=== PATIENT | female | born 1955 | race American Indian/Alaskan Native ===

== ENCOUNTER 2020-03-16 08:47 | Inpatient (IN) | payer MEDICARE, MEDICAID, OTHER, SELFPAY ==
[2020-03-16] VITALS (17 sets, daily range): BP systolic 131–165; BP diastolic 63–87; PULSE 85–124; RESP 16–45; TEMP 35.8–38.6; O2SAT 93–98; BMI 32.2; BMI 32.1
--- NOTE | 2020-03-16 08:55 | DI.RAD.S_ITS ---
PROCEDURE: XR CHEST 1V INDICATIONS: soa TECHNIQUE: One view of the chest was acquired. COMPARISON: [facility], CR, XR CHEST 1 VIEW, 03/03/2019, 13:56. [facility], CT, CT ANGIO CHEST PE, 03/04/2019, 18:18. [facility], CR, CHEST 1 VIEW, 07/22/2012, 17:28. FINDINGS: Surgical changes and devices: None. Lungs and pleura: Patchy bilateral interstitial infiltrates. No pleural effusions or pneumothorax. Mediastinum: Mediastinal contours appear normal. Heart size is normal. Bones and chest wall: No suspicious bony lesions. Overlying soft tissues appear unremarkable. IMPRESSION: Patchy bilateral interstitial infiltrates. Consider viral pneumonia. Dictated by: Doe rAaya M.D. on 03/16/2020 at 9:41 Approved by: Doe Araya M.D. on 03/16/2020 at 9:42
--- NOTE | 2020-03-16 08:57 | ED_ITS ---
HPI - SOB/Dyspnea General Chief Complaint: Shortness of Breath/Dyspnea Stated Complaint: fever Time Seen by Provider: 03/16/20 09:04 Source: patient and EMS Mode of arrival: EMS History of Present Illness HPI Narrative: Patient has been quarantined at home due to positive Covid. Sister is admitted in the hospital in [place] for covid. Patient has been doing well till she awoke this morning with fever and shortness of breath. Home temp erature 104?. However did not take any medicines rectal temperature here 101. Vital signs reviewed. Patient is speaking full sentences but is dyspneic. Not toxic appearing. Not hypotensive. Original patient was on 15 L non-rebreather. However only requiring 2 L nasal cannula at this time. She states usually short of breath when she is walking. Not having problems when playing and at rest. Denies any chest pain. No nausea or vomiting. Has had dry cough. No previous history of lung disease. Has history of stents in the iliac arteries. None in the heart. Has history of diabetes. At this time no intubation indicated. Respiratory therapy at bedside Related Data Home Medications Medication Instructions Recorded Confirmed aspirin 81 mg PO QDAY #0 07/18/12 03/16/20 enalapril maleate 20 mg PO BID #0 07/18/12 03/16/20 isosorbide mononitrate 30 mg PO Q DAY #0 07/18/12 03/16/20 levothyroxine [Synthroid] 0.075 mg PO QDAY #0 07/18/12 03/16/20 metoprolol tartrate 50 mg PO BID #0 07/18/12 03/16/20 amlodipine 5 mg PO DAILY 03/16/20 03/16/20 atorvastatin 10 mg PO DAILY 03/16/20 03/16/20 furosemide 20 mg PO BID 03/16/20 03/16/20 glipizide 2.5 mg PO DAILY 03/16/20 03/16/20 lisinopril 40 mg PO DAILY 03/16/20 03/16/20 metformin 850 mg PO DAILY 03/16/20 03/16/20 metoprolol succinate 25 mg PO DAILY 03/16/20 03/16/20 Previous Rx's Medication Instructions Recorded levofloxacin 750 mg PO DAILY #1 tab 03/20/20 Allergies Allergy/AdvReac Type Severity Reaction Status Date / Time Penicillins [PENICILLINS] Allergy Severe HIVES, SOB Verified 03/16/20 09:23 hydrocodone [HYDROCODONE] AdvReac Mild ITCHING Verified 03/16/20 09:23 Review of Systems Review of Systems Narrative: GENERAL: Complains of chills, fatigue, malaise, fever, sweats. HEENT: Denies sinus pain, ear pain, sore throat, difficulty swallowing, dizziness. RESPIRATORY: Complains of dyspnea, cough, denies any wheezing, hemoptysis, sputum. CARDIOVASCULAR: Denies chest pain, palpitations, orthopnea, edema, GASTROINTESTINAL: Denies nausea, vomiting, abdominal pain, diarrhea, constipation, melena. : Denies dysuria, frequency, incontinence, hematuria, urinary retention. MUSCULOSKELETAL: denies weakness, joint pain, or bony pain SKIN: Denies rash, skin lesions, or other NEUROLOGIC: Denies weakness, headache, numbness, change in speech, confusion, seizures, incoordination. PSYCHIATRIC: No concerning psychosocial issues. ROS Unobtainable: All systems reviewed & are unremarkable except as noted in HPI and below Patient History Medical History (Updated 03/16/20 @ 14:15 by Destiny Leblanc MD) CAD (coronary artery disease) (Acute) Hepatitis C, chronic (Acute) Hypertension (Acute) Liver cancer (Acute) Type 2 diabetes mellitus (Acute) Family History (Updated 03/16/20 @ 14:16 by Destiny Leblanc MD) Mother Myocardial infarction Father Myocardial infarction Sister Pneumonia due to COVID-19 virus Social History household members: family Smoking Status: Never smoker Exam Narrative Exam Narrative: GENERAL: patient appears stated age. Well-nourished, well- developed patient, in no distress, not toxic HEAD: Atraumatic. Normocephalic. EYES: Pupils equal round and reactive. Extraocular motions intact. No scleral icterus. No injection or drainage. ENT: Nose without bleeding, purulent drainage. Throat without erythema, tonsillar hypertrophy or exudate. Airway patent. NECK: Trachea midline. Non tender CARDIOVASCULAR: Regular rate and rhythm without murmurs, gallops, or rubs. RESPIRATORY: Patient speaking full sentences. Not using accessory neck muscles. No intercostal retractions. Appears mild moderate dyspnea, bibasilar rhonchi/rales GASTROINTESTINAL: Abdomen soft, non-tender, nondistended. EXTREMITIES: No edema or joint tenderness. No calf tenderness no pedal edema BACK: Nontender without deformity or crepitance. No flank tenderness. NEURO: AOx3. SKIN: No rash or erythema of visible areas PSYCH: Not anxious, is cooperative Initial Vital Signs Initial Vital Signs: Vital Signs Pulse Rate 117 H 03/16/20 08:51 Respiratory Rate 42 H 03/16/20 08:51 Pulse Oximetry 98 03/16/20 08:51 Course Course Course Narrative: Patient hypoxic when exertion but not hypoxic at rest. Decision to Admit Date: 03/16/20 Decision to Admit time: 10:50 Orders Ordered: Discontinued Medications Acetaminophen (Tylenol) 975 mg PO NOW ONE Stop: 03/16/20 08:57 Last Admin: 03/16/20 09:11 Dose: 975 mg Documented by: VALERY Acetaminophen (Tylenol) 650 mg PO Q6HR PRN PRN Reason: Fever/Mild Pain (1-3) Last Admin: 03/19/20 21:50 Dose: 650 mg Documented by: Admin: 03/18/20 17:47 Dose: 650 mg Documented by: MANDY Al Hydrox/Mg Hydrox/Simethicone (Maalox Plus) 30 ml PO Q6HR PRN PRN Reason: Dyspepsia Amlodipine Besylate (Norvasc) 5 mg PO DAILY [facility] Last Admin: 03/20/20 08:00 Dose: 5 mg Documented by: Admin: 03/19/20 08:52 Dose: 5 mg Documented by: Admin: 03/18/20 09:17 Dose: 5 mg Documented by: Admin: 03/17/20 09:42 Dose: 5 mg Documented by: SHANE Aspirin (Aspirin Ec) 81 mg PO DAILY [facility] Last Admin: 03/20/20 08:00 Dose: 81 mg Documented by: Admin: 03/19/20 08:52 Dose: 81 mg Documented by: Admin: 03/18/20 09:17 Dose: 81 mg Documented by: Admin: 03/17/20 09:43 Dose: 81 mg Documented by: SHANE Atorvastatin Calcium (Lipitor) 10 mg PO BEDTIME [facility] Last Admin: 03/19/20 21:50 Dose: 10 mg Documented by: Admin: 08/14/20 21:24 Dose: 10 mg Documented by: Admin: 03/17/20 20:15 Dose: 10 mg Documented by: Admin: 03/16/20 21:47 Dose: 10 mg Documented by: KACI Bisacodyl (Dulcolax) [address] DAILY PRN PRN Reason: Constipation Dexamethasone (Decadron) 6 mg PO NOW ONE Stop: 03/16/20 13:21 Last Admin: 03/16/20 14:35 Dose: 6 mg Documented by: SHANE Dexamethasone (Decadron) 6 mg PO DAILY [facility] Last Admin: 03/20/20 08:02 Dose: 6 mg Documented by: Admin: 03/19/20 08:53 Dose: 6 mg Documented by: Admin: 03/18/20 09:18 Dose: 6 mg Documented by: Admin: 03/17/20 09:42 Dose: 6 mg Documented by: Admin: 03/16/20 14:35 Dose: Not Given Documented by: SHANE Dextrose (D50w) 25 gm IV PRN PRN; Protocol PRN Reason: Hypoglycemia Docusate Sodium (Colace) 100 mg PO BID [facility] Last Admin: 03/20/20 08:01 Dose: 100 mg Documented by: Admin: 03/19/20 21:49 Dose: 100 mg Documented by: Admin: 03/19/20 08:53 Dose: 100 mg Documented by: Admin: 03/18/20 21:25 Dose: 100 mg Documented by: Admin: 03/18/20 09:17 Dose: 100 mg Documented by: Admin: 03/17/20 20:15 Dose: 100 mg Documented by: Admin: 03/17/20 09:42 Dose: 100 mg Documented by: Admin: 03/16/20 21:47 Dose: 100 mg Documented by: KACI Enoxaparin Sodium (Lovenox) 40 mg SUBCUT DAILY [facility] Last Admin: 03/20/20 08:01 Dose: 40 mg Documented by: Admin: 03/19/20 08:53 Dose: 40 mg Documented by: Admin: 03/18/20 09:17 Dose: 40 mg Documented by: Admin: 03/17/20 09:41 Dose: 40 mg Documented by: Admin: 03/16/20 14:33 Dose: 40 mg Documented by: SHANE Furosemide (Lasix) 20 mg PO BID [facility] Last Admin: 03/20/20 08:01 Dose: 20 mg Documented by: Admin: 03/19/20 21:50 Dose: 20 mg Documented by: Admin: 03/19/20 08:53 Dose: 20 mg Documented by: Admin: 03/18/20 21:25 Dose: 20 mg Documented by: Admin: 03/18/20 09:17 Dose: 20 mg Documented by: Admin: 03/17/20 20:15 Dose: 20 mg Documented by: Admin: 03/17/20 09:42 Dose: 20 mg Documented by: Admin: 03/16/20 21:47 Dose: 20 mg Documented by: KACI Glipizide (Glucotrol) 2.5 mg PO QACBREAK [facility] Last Admin: 03/20/20 08:01 Dose: 2.5 mg Documented by: Admin: 03/19/20 08:48 Dose: 2.5 mg Documented by: LUCY Sodium Chloride (Normal Saline 0.9%) 500 mls @ 1,000 mls/hr IV BOLUS ONE Stop: 03/16/20 09:31 Last Infusion: 03/16/20 10:00 Dose: 0 mls/hr Documented by: Admin: 03/16/20 09:11 Dose: 1,000 mls/hr Documented by: BTONER Remdesivir 200 mg/ Sodium (Chloride) 250 mls @ 250 mls/hr IV NOW ONE Stop: 03/16/20 13:20 Last Infusion: 03/16/20 16:00 Dose: 0 mls/hr Documented by: Admin: 03/16/20 14:35 Dose: 250 mls/hr Documented by: SHANE Remdesivir 100 mg/ Sodium (Chloride) 250 mls @ 250 mls/hr IV DAILY [facility] Stop: 03/20/20 09:59 Last Admin: 03/20/20 10:20 Dose: 250 mls/hr Documented by: Infusion: 03/19/20 10:00 Dose: 0 mls/hr Documented by: Admin: 03/19/20 08:56 Dose: 250 mls/hr Documented by: Infusion: 03/18/20 10:32 Dose: 0 mls/hr Documented by: Admin: 03/18/20 09:32 Dose: 250 mls/hr Documented by: Infusion: 03/17/20 10:41 Dose: 0 mls/hr Documented by: Admin: 03/17/20 09:41 Dose: 250 mls/hr Documented by: SHANE Sodium Chloride (Normal Saline 0.9%) 250 mls @ 21 mls/hr IV Q24H PRN PRN Reason: Flush Last Infusion: 03/19/20 10:00 Dose: 0 mls/hr Documented by: Admin: 03/19/20 08:54 Dose: 21 mls/hr Documented by: LUCY Levofloxacin (Levaquin) 750 mg in 150 mls @ 100 mls/hr IV Q24H [facility] Last Infusion: 03/19/20 17:47 Dose: 0 mls/hr Documented by: Admin: 03/19/20 15:27 Dose: 100 mls/hr Documented by: Infusion: 03/18/20 15:38 Dose: 100 mls/hr Documented by: Admin: 03/18/20 14:08 Dose: 100 mls/hr Documented by: Infusion: 03/17/20 22:17 Dose: 0 mls/hr Documented by: Admin: 03/17/20 16:33 Dose: 150 mls/hr Documented by: Infusion: 03/16/20 18:05 Dose: 0 mls/hr Documented by: Admin: 03/16/20 16:35 Dose: 100 mls/hr Documented by: GPLUCILA Ibuprofen (Advil) 600 mg PO Q6HR PRN PRN Reason: Fever/Mild Pain (1-3) Insulin Aspart (Novolog Flexpen) 0 unit SUBCUT Q6H [facility]; Protocol Last Admin: 03/16/20 16:24 Dose: Not Given Documented by: ACHEYAQUELIN Insulin Aspart (Novolog Flexpen) 0 unit SUBCUT ACHS [facility]; Protocol Last Admin: 03/20/20 08:38 Dose: Not Given Documented by: Admin: 03/19/20 21:52 Dose: 3 unit Documented by: LENI Cosigned by: RAMON Admin: 03/19/20 16:57 Dose: 3 unit Documented by: LENI Cosigned by: RAMON Admin: 03/19/20 12:36 Dose: Not Given Documented by: Admin: 03/19/20 09:40 Dose: Not Given Documented by: Admin: 03/18/20 21:25 Dose: 3 unit Documented by: MANDY Cosigned by: RAMON Admin: 03/18/20 17:47 Dose: 5 unit Documented by: MANDY Cosigned by: RAMON Admin: 03/18/20 12:43 Dose: 1 unit Documented by: SHANE Cosigned by: EMRE Admin: 03/18/20 09:15 Dose: 1 unit Documented by: SHANE Cosigned by: SHARONDA Admin: 03/17/20 22:15 Dose: 2 unit Documented by: MANDY Cosigned by: YEYO Admin: 03/17/20 16:32 Dose: 3 unit Documented by: MANDY Cosigned by: LAMBERT Admin: 03/17/20 12:58 Dose: 1 unit Documented by: SHANE Cosigned by: CARMEN Admin: 03/17/20 09:43 Dose: 1 unit Documented by: SHANE Cosharper by: EMRE Admin: 03/16/20 21:48 Dose: 2 unit Documented by: KACI Cosigned by: SHANTANU Admin: 03/16/20 16:37 Dose: 3 unit Documented by: KACI Cosigned by: SHANE Insulin Glargine (Lantus Solostar (Pen)) 10 unit SUBCUT BEDTIME [facility] Last Admin: 03/19/20 21:52 Dose: 10 unit Documented by: LENI Cosigned by: RAMON Admin: 03/18/20 21:25 Dose: 10 unit Documented by: MANDY Cosigned by: RAMON Admin: 03/17/20 22:15 Dose: 10 unit Documented by: MANDY Cosigned by: YEYO Admin: 03/16/20 21:49 Dose: 10 unit Documented by: KACI Cosigned by: SHANTANU Isosorbide Mononitrate (Isosorbide Mononitrate) 30 mg PO 0700 [facility] Isosorbide Mononitrate (Imdur) 30 mg PO 0700 [facility] Last Admin: 03/20/20 06:36 Dose: 30 mg Documented by: Admin: 03/19/20 06:22 Dose: 30 mg Documented by: Admin: 03/18/20 06:33 Dose: 30 mg Documented by: Admin: 03/17/20 06:44 Dose: 30 mg Documented by: LYN Levofloxacin (Levaquin) 750 mg PO NOW ONE Stop: 03/20/20 11:50 Last Admin: 03/20/20 12:03 Dose: 750 mg Documented by: LUCY Levothyroxine Sodium (Synthroid) 75 mcg PO 0600 [facility] Last Admin: 03/20/20 06:35 Dose: 75 mcg Documented by: Admin: 03/19/20 06:22 Dose: 75 mcg Documented by: Admin: 03/18/20 06:33 Dose: 75 mcg Documented by: Admin: 03/17/20 06:05 Dose: 75 mcg Documented by: LYN Lisinopril (Zestril) 40 mg PO DAILY [facility] Last Admin: 03/20/20 08:00 Dose: 40 mg Documented by: Admin: 03/19/20 08:53 Dose: 40 mg Documented by: Admin: 03/18/20 09:17 Dose: 40 mg Documented by: Admin: 03/17/20 09:43 Dose: 40 mg Documented by: SHANE Magnesium Hydroxide (Milk Of Magnesia) 30 ml PO DAILY PRN PRN Reason: Constipation Last Admin: 03/18/20 09:17 Dose: 30 ml Documented by: SHANE Melatonin (Melatonin) 6 mg PO BEDTIME [facility] Last Admin: 03/19/20 23:24 Dose: Not Given Documented by: Admin: 03/18/20 21:24 Dose: 6 mg Documented by: MANDY Metformin HCl (Glucophage) 1,000 mg PO 0800 [facility] Last Admin: 03/20/20 08:01 Dose: 1,000 mg Documented by: Admin: 03/19/20 08:52 Dose: 1,000 mg Documented by: LUCY Metoprolol Succinate (Toprol Xl) 50 mg PO BID [facility] Last Admin: 08/16/20 08:01 Dose: 50 mg Documented by: Admin: 03/19/20 21:50 Dose: 50 mg Documented by: Admin: 03/19/20 08:53 Dose: 50 mg Documented by: Admin: 03/18/20 21:29 Dose: Not Given Documented by: Admin: 03/18/20 09:17 Dose: 50 mg Documented by: Admin: 03/17/20 20:15 Dose: 50 mg Documented by: Admin: 03/17/20 09:43 Dose: 50 mg Documented by: Admin: 03/16/20 21:47 Dose: 50 mg Documented by: GPLUCILA Morphine Sulfate (Morphine) 2 mg IV Q4HR PRN PRN Reason: Pain, Moderate (4-6) Naloxone HCl (Narcan) 0.2 mg IV Q2MIN PRN PRN Reason: Opiate Reversal Non-Formulary Medication (Patient's Own Medication) 0 each PO PRN PRN PRN Reason: HOME MEDICATION STORAGE Ondansetron HCl (Zofran) 4 mg IV Q8HR PRN PRN Reason: Nausea And Vomiting Last Admin: 03/17/20 09:41 Dose: 4 mg Documented by: SHANE Sodium Chloride (Normal Saline 0.9% Flush) 10 ml IV PRN PRN PRN Reason: Flush Sodium Chloride (Normal Saline 0.9% Flush) 10 ml IV BID [facility] Sodium Chloride (Normal Saline 0.9% Flush) 10 ml IV PRN PRN PRN Reason: Flush Sodium Chloride (Normal Saline 0.9% Flush) 10 ml IV BID [facility] Last Admin: 03/20/20 08:01 Dose: 10 ml Documented by: Admin: 03/19/20 21:53 Dose: 10 ml Documented by: Admin: 03/19/20 08:54 Dose: 10 ml Documented by: Admin: 03/18/20 21:28 Dose: 10 ml Documented by: Admin: 03/18/20 09:18 Dose: 10 ml Documented by: Admin: 03/17/20 20:16 Dose: 10 ml Documented by: Admin: 03/17/20 09:41 Dose: 10 ml Documented by: SHANE Reevaluation(s) Reevaluation #1: Patient weaned down to 2 L nasal cannula. 98%. No dyspnea. Time: 10:50 Consultations Consultation #1: Spoke with Dr. leblanc, will admit Time: 10:50 Vital Signs Vital signs: Vital Signs - 8 hr 03/16/20 08:51 03/16/20 09:00 03/16/20 09:30 Temperature 101.4 F H Pulse Rate 117 H 114 H 107 H Respiratory Rate 42 H 29 H 45 H Blood Pressure 147/73 H 151/74 H Pulse Oximetry 98 95 98 03/16/20 10:00 03/16/20 10:16 03/16/20 10:17 Temperature 100.1 F H 100.1 F H Pulse Rate 102 H Respiratory Rate 32 H Blood Pressure 143/65 H Pulse Oximetry 97 03/16/20 10:30 03/16/20 10:31 Temperature Pulse Rate 98 H 96 H Respiratory Rate 40 H 35 H Blood Pressure 142/65 H Pulse Oximetry 97 96 MDM - SOB/Dyspnea Differential Diagnosis Differential diagnosis: Likely community acquired pneumonia Lab Data Attestation: I reviewed the patient's lab results. Result diagrams: 03/18/20 05:10 03/18/20 05:10 Labs: Lab Results 03/16/20 03/16/20 03/16/20 Range/Units 09:03 09:03 09:03 WBC 5.4 (4.5-11.0) X10^3/uL RBC 4.81 (4.0-5.2) X10^6/uL Hgb 13.9 (12.0-16.0) g/dL Hct 42.1 (36-46) % MCV 87.4 (80-100) fL MCH 28.8 (26-34) PG MCHC 33.0 (30-36) % RDW 13.6 (11.6-14.8) % Plt Count 101 L (150-400) X10^3/uL Neut % (Auto) 88.9 H (50-75) % Lymph % (Auto) 6.1 L (25-40) % [place] % (Auto) 4.4 (3-14) % Eos % (Auto) 0.2 L (2-4) % Baso % (Auto) 0.4 (0-2) % Neut # (Auto) 4800 (8795-9272) /uL Lymph # (Auto) 300 L (5906-0212) /uL [place] # (Auto) 200 (0-900) /uL Eos # (Auto) 0 (0-450) /uL Baso # (Auto) 0 (0-100) /uL APTT 41 H (26.4-36.2) SECONDS D-Dimer (<230) ng/mL ABG pH (7.35-7.45) ABG pCO2 (35-45) mmHg ABG pO2 (80-100) mmHg ABG HCO3 (22-26) mmol/L ABG Total CO2 (21-31) mmol/L ABG O2 Saturation (95-100) % ABG Base Excess (-2-2) mmol/L FiO2 Sodium (137-145) mmol/L Potassium (3.4-5.1) mmol/L Chloride (98-107) mmol/L Carbon Dioxide (22-32) mmol/L BUN (7-17) mg/dL Creatinine (0.52-1.04) mg/dL Estimated GFR (>60) mL/min BUN/Creatinine Ratio (6-22) Glucose (80-110) mg/dL Hemoglobin A1c (4.0-6.0) % Lactate (0.7-2.1) mmol/L Calcium (8.4-10.2) mg/dL Total Bilirubin (0.2-1.3) mg/dL AST (14-36) IU/L ALT (<35) IU/L Alkaline Phosphatase (38-126) U/L Total Creatine Kinase (30-135) U/L CK-MB (CK-2) CK-MB (CK-2) Rel Index Troponin I (0.01-0.034) ng/mL NT-Pro-B Natriuret Pep (<125) pg/mL Total Protein (6.3-8.2) g/dL Albumin (3.5-5.0) g/dL Globulin (1.7-4.1) g/dL Albumin/Globulin Ratio (1.0-2.8) Procalcitonin 8.00 H (<0.5) ng/mL Urine RBC (0-5/HPF) Urine WBC (0-5/HPF) Ur Squamous Epith Cells (0-5/HPF) Urine Bacteria (None) Ur Culture Indicated? COVID-19 PCR (Negative) 03/16/20 03/16/2020 Range/Units 09:03 09:03 09:03 WBC (4.5-11.0) X10^3/uL RBC (4.0-5.2) X10^6/uL Hgb (12.0-16.0) g/dL Hct (36-46) % MCV (80-100) fL MCH (26-34) PG MCHC (30-36) % RDW (11.6-14.8) % Plt Count (150-400) X10^3/uL Neut % (Auto) (50-75) % Lymph % (Auto) (25-40) % [place] % (Auto) (3-14) % Eos % (Auto) (2-4) % Baso % (Auto) (0-2) % Neut # (Auto) (1250-0129) /uL Lymph # (Auto) (5395-2403) /uL [place] # (Auto) (0-900) /uL Eos # (Auto) (0-450) /uL Baso # (Auto) (0-100) /uL APTT (26.4-36.2) SECONDS D-Dimer (<230) ng/mL ABG pH (7.35-7.45) ABG pCO2 (35-45) mmHg ABG pO2 (80-100) mmHg ABG HCO3 (22-26) mmol/L ABG Total CO2 (21-31) mmol/L ABG O2 Saturation (95-100) % ABG Base Excess (-2-2) mmol/L FiO2 Sodium 139 (137-145) mmol/L Potassium 3.9 (3.4-5.1) mmol/L Chloride 111 H (98-107) mmol/L Carbon Dioxide 19 L (22-32) mmol/L BUN 16 (7-17) mg/dL Creatinine 0.90 (0.52-1.04) mg/dL Estimated GFR > 60.0 (>60) mL/min BUN/Creatinine Ratio 17.8 (6-22) Glucose 116 H (80-110) mg/dL Hemoglobin A1c (4.0-6.0) % Lactate 1.3 (0.7-2.1) mmol/L Calcium 9.0 (8.4-10.2) mg/dL Total Bilirubin 0.5 (0.2-1.3) mg/dL AST 75 H (14-36) IU/L ALT 34 (<35) IU/L Alkaline Phosphatase 173 H (38-126) U/L Total Creatine Kinase (30-135) U/L CK-MB (CK-2) CK-MB (CK-2) Rel Index Troponin I (0.01-0.034) ng/mL NT-Pro-B Natriuret Pep 419 H (<125) pg/mL Total Protein 7.4 (6.3-8.2) g/dL Albumin 3.9 (3.5-5.0) g/dL Globulin 3.5 (1.7-4.1) g/dL Albumin/Globulin Ratio 1.1 (1.0-2.8) Procalcitonin (<0.5) ng/mL Urine RBC (0-5/HPF) Urine WBC (0-5/HPF) Ur Squamous Epith Cells (0-5/HPF) Urine Bacteria (None) Ur Culture Indicated? COVID-19 PCR (Negative) 03/16/20 03/16/20 03/16/20 Range/Units 09:03 09:03 09:03 WBC (4.5-11.0) X10^3/uL RBC (4.0-5.2) X10^6/uL Hgb (12.0-16.0) g/dL Hct (36-46) % MCV (80-100) fL MCH (26-34) PG MCHC (30-36) % RDW (11.6-14.8) % Plt Count (150-400) X10^3/uL Neut % (Auto) (50-75) % Lymph % (Auto) (25-40) % [place] % (Auto) (3-14) % Eos % (Auto) (2-4) % Baso % (Auto) (0-2) % Neut # (Auto) (7963-3245) /uL Lymph # (Auto) (0288-8780) /uL [place] # (Auto) (0-900) /uL Eos # (Auto) (0-450) /uL Baso # (Auto) (0-100) /uL APTT (26.4-36.2) SECONDS D-Dimer 453 H (<230) ng/mL ABG pH (7.35-7.45) ABG pCO2 (35-45) mmHg ABG pO2 (80-100) mmHg ABG HCO3 (22-26) mmol/L ABG Total CO2 (21-31) mmol/L ABG O2 Saturation (95-100) % ABG Base Excess (-2-2) mmol/L FiO2 Sodium (137-145) mmol/L Potassium (3.4-5.1) mmol/L Chloride (98-107) mmol/L Carbon Dioxide (22-32) mmol/L BUN (7-17) mg/dL Creatinine (0.52-1.04) mg/dL Estimated GFR (>60) mL/min BUN/Creatinine Ratio (6-22) Glucose (80-110) mg/dL Hemoglobin A1c 5.8 (4.0-6.0) % Lactate (0.7-2.1) mmol/L Calcium (8.4-10.2) mg/dL Total Bilirubin (0.2-1.3) mg/dL AST (14-36) IU/L ALT (<35) IU/L Alkaline Phosphatase (38-126) U/L Total Creatine Kinase 34 (30-135) U/L CK-MB (CK-2) TNP CK-MB (CK-2) Rel Index TNP Troponin I < 0.012 (0.01-0.034) ng/mL NT-Pro-B Natriuret Pep (<125) pg/mL Total Protein (6.3-8.2) g/dL Albumin (3.5-5.0) g/dL Globulin (1.7-4.1) g/dL Albumin/Globulin Ratio (1.0-2.8) Procalcitonin (<0.5) ng/mL Urine RBC (0-5/HPF) Urine WBC (0-5/HPF) Ur Squamous Epith Cells (0-5/HPF) Urine Bacteria (None) Ur Culture Indicated? COVID-19 PCR (Negative) 03/16/20 03/16/20 03/16/20 Range/Units 09:25 10:00 10:37 WBC (4.5-11.0) X10^3/uL RBC (4.0-5.2) X10^6/uL Hgb (12.0-16.0) g/dL Hct (36-46) % MCV (80-100) fL MCH (26-34) PG MCHC (30-36) % RDW (11.6-14.8) % Plt Count (150-400) X10^3/uL Neut % (Auto) (50-75) % Lymph % (Auto) (25-40) % [place] % (Auto) (3-14) % Eos % (Auto) (2-4) % Baso % (Auto) (0-2) % Neut # (Auto) (3346-7591) /uL Lymph # (Auto) (0304-1566) /uL [place] # (Auto) (0-900) /uL Eos # (Auto) (0-450) /uL Baso # (Auto) (0-100) /uL APTT (26.4-36.2) SECONDS D-Dimer (<230) ng/mL ABG pH 7.40 (7.35-7.45) ABG pCO2 28.8 L (35-45) mmHg ABG pO2 81 (80-100) mmHg ABG HCO3 18 L (22-26) mmol/L ABG Total CO2 19 L (21-31) mmol/L ABG O2 Saturation 96 (95-100) % ABG Base Excess -7.0 L (-2-2) mmol/L FiO2 28 Sodium (137-145) mmol/L Potassium (3.4-5.1) mmol/L Chloride (98-107) mmol/L Carbon Dioxide (22-32) mmol/L BUN (7-17) mg/dL Creatinine (0.52-1.04) mg/dL Estimated GFR (>60) mL/min BUN/Creatinine Ratio (6-22) Glucose (80-110) mg/dL Hemoglobin A1c (4.0-6.0) % Lactate (0.7-2.1) mmol/L Calcium (8.4-10.2) mg/dL Total Bilirubin (0.2-1.3) mg/dL AST (14-36) IU/L ALT (<35) IU/L Alkaline Phosphatase (38-126) U/L Total Creatine Kinase (30-135) U/L CK-MB (CK-2) CK-MB (CK-2) Rel Index Troponin I (0.01-0.034) ng/mL NT-Pro-B Natriuret Pep (<125) pg/mL Total Protein (6.3-8.2) g/dL Albumin (3.5-5.0) g/dL Globulin (1.7-4.1) g/dL Albumin/Globulin Ratio (1.0-2.8) Procalcitonin (<0.5) ng/mL Urine RBC 0-1/hpf (0-5/HPF) Urine WBC 1-5/hpf (0-5/HPF) Ur Squamous Epith Cells 0-1 /hpf (0-5/HPF) Urine Bacteria Few (2-10) H (None) Ur Culture Indicated? Specimen cultured COVID-19 PCR Positive H (Negative) Point of Care Testing Glucose POC 85 Urine Dip Bedside Urine Glucose 100 mg/dl Bedside Urine Ketone +++ 80 Urine Specific [place] 1.015 Bedside Urine Occult Blood - Negative Bedside Urine pH 7.0 Bedside Urine Protein ++ 100 Bedside Urine Urobilinogen - Negative Bedside Urine Nitrite - Negative Bedside Urine Leukocytes +/- 15 Esterase Imaging Data Chest x-ray: Radiologist's Impression: [place] [address] XRay Report Signed Patient: Sandra KirbyPRR#: [id number] : 5Acct:[id number] Age/Sex: 64 / FDate of Service: 03/16/20 Loc: ED Accession Number: [id number] Procedure: XR chest 1V Ordering Provider: Hipolito Rea MD PROCEDURE: XR CHEST 1V INDICATIONS: soa TECHNIQUE: One view of the chest was acquired. COMPARISON: [facility], CR, XR CHEST 1 VIEW, 03/03/2019, 13:56. [facility], CT, CT ANGIO CHEST PE, 03/04/2019, 18:18. [facility], CR, CHEST 1 VIEW, 07/22/2012, 17:28. FINDINGS: Surgical changes and devices: None. Lungs and pleura: Patchy bilateral interstitial infiltrates. No pleural effusions or pneumothorax. Mediastinum: Mediastinal contours appear normal. Heart size is normal. Bones and chest wall: No suspicious bony lesions. Overlying soft tissues appear unremarkable. IMPRESSION: Patchy bilateral interstitial infiltrates. Consider viral pneumonia. Dictated by: Doe Araya M.D. on 03/16/2020 at 9:41 Approved by: Doe Araya M.D. on 03/16/2020 at 9:42 CT scan - chest: Radiologist's Impression: [address] [address] [address] Scan Report Signed Patient: Sandra KirbynMR#: [id number] : 5Acct:[id number] Age/Sex: 64 / FDate of Service: 03/16/20 Loc: [id number] Accession Number: [id number] Procedure: CT angio chest PE protocol Ordering Provider: Hipolito Rea MD PROCEDURE: CT ANGIO CHEST PE PROTOCOL INDICATIONS: shortness of breath TECHNIQUE: After the administration of intravenous contrast, 2 mm thick sections acquired from the pulmonary apices to the posterior costophrenic angles. 3-dimensional maximum intensity projection (MIP) coronal and sagittal reformats were then acquired through the thorax. For radiation dose reduction, the following was used: automated exposure control, adjustment of mA and/or kV according to patient size. COMPARISON: [facility], CT, CT ANGIO CHEST PE, 03/04/2019, 18:18. FINDINGS: Image quality: Excellent. Pulmonary arteries: Pulmonary arteries are normal in size, and demonstrate no intraluminal filling defects to suggest central pulmonary embolism. Lungs and pleura: Extensive patchy ground-glass opacities present throughout all lung siegel. Consider alveolar pulmonary edema versus multifocal viral pneumonitis. No pleural effusions or pneumothorax. Central and peripheral airways are patent. Mediastinum: Mild cardiomegaly. No pericardial effusion. Coronary artery calcifications.. No mediastinal or hilar adenopathy. Thoracic aorta is normal in caliber and enhancement. Esophagus is normal in caliber, without hiatal hernia. Bones and chest wall: No suspicious bony lesions. Ribs and thoracic spine appear intact throughout. Thyroid gland is unremarkable. No axillary or supraclavicular adenopathy. Abdomen: Diffuse changes of cirrhosis with surface nodularity period in homogeneity of enhancement is again noted with nodular lesions present suspicious for multifocal hepatoma. IMPRESSION: 1. No evidence acute pulmonary emboli. 2. Mild cardiomegaly. 3. Extensive patchy ground-glass opacities throughout the lung siegel bilaterally. Differential includes developing alveolar pulmonary edema versus viral pneumo nitis. 4. Coronary artery disease. 5. Cirrhosis. 6. Unchanged findings of inhomogeneity in nodular lesions in the liver suggesting possible hepatoma. Dictated by: Doe Araya M.D. on 03/16/2020 at 11:58 Approved by: Doe Araya M.D. on 03/16/2020 at 12:05 ECG Data Attestation: I personally reviewed and interpreted this ECG as follows: Interpretation: Sinus tachycardia no ST elevation or depression MDM Narrative Medical decision making narrative: Admitting patient for dyspnea. Discharge Plan Departure Patient Disposition: Admitted as Observation Clinical Impression: Pneumonia due to 2019 novel coronavirus Discharge Date/Time: 03/16/20 12:34 Instructions: DI for Pneumonia -- Adult, Levofloxacin, DI for COVID-19 (Suspected or Confirmed ) Referrals: Rupali Roberts PA-C [Primary Care Provider] - Admit Date/Time: 03/16/20 10:51 Admit Provider: Destiny Leblanc
[2020-03-16] MEDS: ACETAMINOPHEN 325 MG TABLET 975 MG PO (09:11)
[2020-03-16] MEDS: SODIUM CHLORIDE 0.9% 500 ML 1000 ML IV (09:11)
[2020-03-16 09:17] LABS: Add Manual Diff / Slide Review NO; Basophils Absolute Auto 0 /uL (0-100); Basophils Percent Auto 0.4 % (0-2); Eosinophils Absolute Auto 0 /uL (0-450); Eosinophils Percent Auto 0.2 % (2-4); Hematocrit 42.1 % (36-46); Hemoglobin 13.9 g/dL (12.0-16.0); Lymphocytes Absolute Auto 300 /uL (1100-4500); Lymphocytes Percent Auto 6.1 % (25-40); Mean Corpuscular Hemoglobin 28.8 PG (26-34); Mean Corpuscular Volume 87.4 fL (80-100); Monocytes Absolute Auto 200 /uL (0-900); Monocytes Percent Auto 4.4 % (3-14); Neutrophils Absolute Auto 4800 /uL (1500-7000); Neutrophils Percent Auto 88.9 % (50-75); Platelet Count 101 X10^3/uL (150-400); Red Blood Cell Count 4.81 X10^6/uL (4.0-5.2); Red Cell Distribution Width 13.6 % (11.6-14.8); White Blood Cell Count 5.4 X10^3/uL (4.5-11.0)
[2020-03-16 09:25] LABS: PTT Partial Thromboplastin Tim 41 SECONDS (26.4-36.2)
[2020-03-16 09:27] LABS: Creatine Kinase 34 U/L (30-135); Lactate (Lactic Acid) 1.3 mmol/L (0.7-2.1)
--- NOTE | 2020-03-16 09:28 | PC.NURSE ---
Patient reports tested covid positive x2 weeks ago. States as of yesterday feeling fine and then approximately 0430 woke up shivering, put on blankets, and then went back to sleep. When she awoke later she said she was sweating and took her temperature with her home thermometer and it was 104. Patient called EMS. Upon arrival patient tachypneic. Patient changed from 6L non-breather (from EMS) to 2L NC- tolerated well sat at 97%. Patient confirms shortness of breath, tachycardia at 101. Denies chest pain. Lung sounds diminished bilateral and throughout. Isolation precautions in place.
[2020-03-16 09:29] LABS: Alanine Aminotransferase 34 IU/L (<35); Albumin 3.9 g/dL (3.5-5.0); Albumin Globulin Ratio 1.1 (1.0-2.8); Alkaline Phosphatase 173 U/L (38-126); Aspartate Aminotransferase 75 IU/L (14-36); BUN Creatinine Ratio 17.8 (6-22); Bilirubin Total 0.5 mg/dL (0.2-1.3); Blood Urea Nitrogen 16 mg/dL (7-17); Carbon Dioxide 19 mmol/L (22-32); Chloride 111 mmol/L (98-107); Estimated Glomerular Filt Rate > 60.0 mL/min (>60); Globulin 3.5 g/dL (1.7-4.1); Glucose 116 mg/dL (80-110); HEMOLYSIS < 15 (0-50); Potassium 3.9 mmol/L (3.4-5.1); Sodium 139 mmol/L (137-145); Total Protein 7.4 g/dL (6.3-8.2)
[2020-03-16 09:38] LABS: NT-proBNP (BNP-Adult 18+) 419 pg/mL (<125)
[2020-03-16 09:40] LABS: Troponin I < 0.012 ng/mL (0.01-0.034)
[2020-03-16 10:42] LABS: COVID19 -Nasal RAPID POSITIVE (Negative)
[2020-03-16 11:00] LABS: D Dimer 453 ng/mL (<230)
[2020-03-16 11:02] LABS: Bacteria Urine Few (2-10); Culture Indicated Urine Specimen Cultured; RBC Urine 0-1/HPF (0-5/HPF); Squamous Epithelial Cell Urine 0-1 /HPF (0-5/HPF); WBC Urine 1-5/HPF (0-5/HPF)
[2020-03-16 11:12] LABS: HCO3 ABG 18 mmol/L (22-26); Oxygen Saturation ABG 96 % (95-100); PCO2 ABG 28.8 mmHg (35-45); PO2 ABG 81 mmHg (80-100); TCO2 ABG 19 mmol/L (21-31)
[2020-03-16 11:13] LABS: Fractionated Inspired Oxygen 28
--- NOTE | 2020-03-16 11:13 | DI.CT.S_ITS ---
PROCEDURE: CT ANGIO CHEST PE PROTOCOL INDICATIONS: shortness of breath TECHNIQUE: After the administration of intravenous contrast, 2 mm thick sections acquired from the pulmonary apices to the posterior costophrenic angles. 3-dimensional maximum intensity projection (MIP) coronal and sagittal reformats were then acquired through the thorax. For radiation dose reduction, the following was used: automated exposure control, adjustment of mA and/or kV according to patient size. COMPARISON: [facility], CT, CT ANGIO CHEST PE, 03/04/2019, 18:18. FINDINGS: Image quality: Excellent. Pulmonary arteries: Pulmonary arteries are normal in size, and demonstrate no intraluminal filling defects to suggest central pulmonary embolism. Lungs and pleura: Extensive patchy ground-glass opacities present throughout all lung siegel. Consider alveolar pulmonary edema versus multifocal viral pneumonitis. No pleural effusions or pneumothorax. Central and peripheral airways are patent. Mediastinum: Mild cardiomegaly. No pericardial effusion. Coronary artery calcifications.. No mediastinal or hilar adenopathy. Thoracic aorta is normal in caliber and enhancement. Esophagus is normal in caliber, without hiatal hernia. Bones and chest wall: No suspicious bony lesions. Ribs and thoracic spine appear intact throughout. Thyroid gland is unremarkable. No axillary or supraclavicular adenopathy. Abdomen: Diffuse changes of cirrhosis with surface nodularity period in homogeneity of enhancement is again noted with nodular lesions present suspicious for multifocal hepatoma. IMPRESSION: 1. No evidence acute pulmonary emboli. 2. Mild cardiomegaly. 3. Extensive patchy ground-glass opacities throughout the lung siegel bilaterally. Differential includes developing alveolar pulmonary edema versus viral pneumonitis. 4. Coronary artery disease. 5. Cirrhosis. 6. Unchanged findings of inhomogeneity in nodular lesions in the liver suggesting possible hepatoma. Dictated by: Doe Araya M.D. on 03/16/2020 at 11:58 Approved by: Doe Araya M.D. on 03/16/2020 at 12:05
--- NOTE | 2020-03-16 12:05 | PC.NURSE ---
Patient states she is still having chest pain when she moves. States it is has not changed at all since she came in. CP only occurs when she is moving. When she gets back to resting it goes away. Dr. Flood. Provided patient with more juice and updated of admit.
--- NOTE | 2020-03-16 14:11 | P.HP_ITS ---
History of Present Illness History of Present Illness Date Patient Seen: 03/16/20 Chief complaint: fever Narrative: The patient is a 64-year-old female with a history of type 2 diabetes, hypertension, coronary disease, hep C with liver cancer who presented to the hospital due to fever shortness of breath and is found to be COVID-19 positive. The patient reports that her sister developed covert pneumonia about 4 weeks ago. Her sisters hospitalized at [facility]. She has a nephew who also is COVID-19 positive. The patient has been monitoring her fever daily. She noted a temperature today of over 100. In addition she reported increasing shortness of breath. She has a cough with minimal productive sputum. Four days ago she lost her ability to smell. She has had no wheezing. She reports diarrhea which she is so sees with the use of metformin. The patient was seen and evaluated in the emergency room. Chest x-ray showed bilateral interstitial infiltrates. Chest CT was pending at the time of this dictation. The patient was found to be hypoxic and presented on 15 L of oxygen. She was able to be tapered down to 2 L and managed a O2 sat of 94%. She is admitted to the hospital at this time for COVID-19 pneumonia. Patient History Medical History (Updated 03/16/20 @ 14:15 by Destiny Leblanc MD) CAD (coronary artery disease) (Acute) Hepatitis C, chronic (Acute) Hypertension (Acute) Liver cancer (Acute) Type 2 diabetes mellitus (Acute) Family & Social History Family History (Updated 03/16/20 @ 14:16 by Destiny Leblanc MD) Mother Myocardial infarction Father Myocardial infarction Sister Pneumonia due to COVID-19 virus Safety & Behavioral: Feels Safe in Current Yes Environment Tobacco & Substance use: Smoking Status Never smoker alcohol intake frequency holiday/special occasion Substance Use Type does not use Meds Home Medications and Allergies Home Medications Medication Instructions Recorded Confirmed Type aspirin 81 mg PO QDAY #0 07/18/12 03/16/20 History enalapril maleate 20 mg PO BID #0 07/18/12 03/16/20 History isosorbide mononitrate 30 mg PO Q DAY #0 07/18/12 03/16/20 History levothyroxine [Synthroid] 0.075 mg PO QDAY #0 07/18/12 03/16/20 History metoprolol tartrate 50 mg PO BID #0 07/18/12 03/16/20 History amlodipine 5 mg PO DAILY 03/16/20 03/16/20 History atorvastatin 10 mg PO DAILY 03/16/20 03/16/20 History furosemide 20 mg PO BID 03/16/20 03/16/20 History glipizide 2.5 mg PO DAILY 03/16/20 03/16/20 History lisinopril 40 mg PO DAILY 03/16/20 03/16/20 History metformin 850 mg PO DAILY 03/16/20 03/16/20 History metoprolol succinate 25 mg PO DAILY 03/16/20 03/16/20 History Allergies Allergy/AdvReac Type Severity Reaction Status Date / Time Penicillins [PENICILLINS] Allergy Severe HIVES, SOB Verified 03/16/20 09:23 hydrocodone [HYDROCODONE] AdvReac Mild ITCHING Verified 03/16/20 09:23 Review of Systems Review of Systems ROS: Yes All systems reviewed with the patient and are negative except as otherwise documented Exam Vital Signs (past 8 hours): - 03/16/20 08:51 03/16/20 09:00 03/16/20 09:30 Temperature 101.4 F H Pulse Rate 117 H 114 H 107 H Respiratory Rate 42 H 29 H 45 H Blood Pressure 147/73 H 151/74 H Pulse Oximetry 98 95 98 03/16/20 10:00 03/16/20 10:16 03/16/20 10:17 Temperature 100.1 F H 100.1 F H Pulse Rate 102 H Respiratory Rate 32 H Blood Pressure 143/65 H Pulse Oximetry 97 03/16/20 10:30 03/16/20 10:31 03/16/20 11:00 Temperature Pulse Rate 98 H 96 H 91 H Respiratory Rate 40 H 35 H 26 H Blood Pressure 142/65 H 147/63 H Pulse Oximetry 97 96 98 03/16/20 11:30 03/16/20 11:57 03/16/20 12:00 Temperature 99.8 F H Pulse Rate 87 97 H 92 H Respiratory Rate 27 H 30 H 33 H Blood Pressure 138/65 165/79 H Pulse Oximetry 98 97 97 03/16/20 12:01 Temperature Pulse Rate 93 H Respiratory Rate 26 H Blood Pressure 150/63 H Pulse Oximetry 97 Oxygen Delivery Method Nasal Cannula Oxygen Flow Rate 2 Narrative Exam Narrative: Pleasant female resting comfortably in no obvious distress HEENT: Normocephalic atraumatic, extraocular muscles are intact, oropharynx reveals she is edentulous, there is no lesions, no exudates noted Neck: Left submandibular adenopathy noted, mildly tender to palpation Lungs: Decreased breath sounds with scattered crackles and rhonchi bilaterally Cardiac exam: Regular rate and rhythm normal S1-S2 with a 2/6 systolic ejection murmur Abdomen: Soft nontender nondistended no hepatosplenomegaly noted, multiple incision points on her abdomen are noted. No rebound tenderness, no palpable masses Extremities: No edema Neuro exam: Nonfocal Psychiatric exam: Patient is awake alert appropriate, no hallucinations, no delusions Objective Labs Result Diagrams: 03/16/20 09:03 03/16/20 09:03 Labs: Laboratory Results - last 24 hr 03/16/20 03/16/20 03/16/20 09:03 09:03 09:03 WBC 5.4 RBC 4.81 Hgb 13.9 Hct 42.1 MCV 87.4 MCH 28.8 MCHC 33.0 RDW 13.6 Plt Count 101 L Neut % (Auto) 88.9 H Lymph % (Auto) 6.1 L [place] % (Auto) 4.4 Eos % (Auto) 0.2 L Baso % (Auto) 0.4 Neut # (Auto) 4800 Lymph # (Auto) 300 L [place] # (Auto) 200 Eos # (Auto) 0 Baso # (Auto) 0 APTT 41 H D-Dimer ABG pH ABG pCO2 ABG pO2 ABG HCO3 ABG Total CO2 ABG O2 Saturation ABG Base Excess FiO2 Sodium Potassium Chloride Carbon Dioxide BUN Creatinine Estimated GFR BUN/Creatinine Ratio Glucose Lactate Calcium Total Bilirubin AST ALT Alkaline Phosphatase Total Creatine Kinase CK-MB (CK-2) CK-MB (CK-2) Rel Index Troponin I NT-Pro-B Natriuret Pep Total Protein Albumin Globulin Albumin/Globulin Ratio Procalcitonin 8.00 H Urine RBC Urine WBC Ur Squamous Epith Cells Urine Bacteria Ur Culture Indicated? COVID-19 PCR 03/16/20 03/16/20 03/16/20 09:03 09:03 09:03 WBC RBC Hgb Hct MCV MCH MCHC RDW Plt Count Neut % (Auto) Lymph % (Auto) [place] % (Auto) Eos % (Auto) Baso % (Auto) Neut # (Auto) Lymph # (Auto) [place] # (Auto) Eos # (Auto) Baso # (Auto) APTT D-Dimer ABG pH ABG pCO2 ABG pO2 ABG HCO3 ABG Total CO2 ABG O2 Saturation ABG Base Excess FiO2 Sodium 139 Potassium 3.9 Chloride 111 H Carbon Dioxide 19 L BUN 16 Creatinine 0.90 Estimated GFR > 60.0 BUN/Creatinine Ratio 17.8 Glucose 116 H Lactate 1.3 Calcium 9.0 Total Bilirubin 0.5 AST 75 H ALT 34 Alkaline Phosphatase 173 H Total Creatine Kinase CK-MB (CK-2) CK-MB (CK-2) Rel Index Troponin I NT-Pro-B Natriuret Pep 419 H Total Protein 7.4 Albumin 3.9 Globulin 3.5 Albumin/Globulin Ratio 1.1 Procalcitonin Urine RBC Urine WBC Ur Squamous Epith Cells Urine Bacteria Ur Culture Indicated? COVID-19 PCR 03/16/20 03/16/20 03/16/20 09:03 09:03 09:25 WBC RBC Hgb Hct MCV MCH MCHC RDW Plt Count Neut % (Auto) Lymph % (Auto) [place] % (Auto) Eos % (Auto) Baso % (Auto) Neut # (Auto) Lymph # (Auto) [place] # (Auto) Eos # (Auto) Baso # (Auto) APTT D-Dimer 453 H ABG pH ABG pCO2 ABG pO2 ABG HCO3 ABG Total CO2 ABG O2 Saturation ABG Base Excess FiO2 Sodium Potassium Chloride Carbon Dioxide BUN Creatinine Estimated GFR BUN/Creatinine Ratio Glucose Lactate Calcium Total Bilirubin AST ALT Alkaline Phosphatase Total Creatine Kinase 34 CK-MB (CK-2) TNP CK-MB (CK-2) Rel Index TNP Troponin I < 0.012 NT-Pro-B Natriuret Pep Total Protein Albumin Globulin Albumin/Globulin Ratio Procalcitonin Urine RBC Urine WBC Ur Squamous Epith Cells Urine Bacteria Ur Culture Indicated? COVID-19 PCR Positive H 03/16/20 03/16/20 10:00 10:37 WBC RBC Hgb Hct MCV MCH MCHC RDW Plt Count Neut % (Auto) Lymph % (Auto) [place] % (Auto) Eos % (Auto) Baso % (Auto) Neut # (Auto) Lymph # (Auto) [place] # (Auto) Eos # (Auto) Baso # (Auto) APTT D-Dimer ABG pH 7.40 ABG pCO2 28.8 L ABG pO2 81 ABG HCO3 18 L ABG Total CO2 19 L ABG O2 Saturation 96 ABG Base Excess -7.0 L FiO2 28 Sodium Potassium Chloride Carbon Dioxide BUN Creatinine Estimated GFR BUN/Creatinine Ratio Glucose Lactate Calcium Total Bilirubin AST ALT Alkaline Phosphatase Total Creatine Kinase CK-MB (CK-2) CK-MB (CK-2) Rel Index Troponin I NT-Pro-B Natriuret Pep Total Protein Albumin Globulin Albumin/Globulin Ratio Procalcitonin Urine RBC 0-1/hpf Urine WBC 1-5/hpf Ur Squamous Epith Cells 0-1 /hpf Urine Bacteria Few (2-10) H Ur Culture Indicated? Specimen cultured COVID-19 PCR Assessment & Plan Assessment & Plan narrative: Impression 1. 64-year-old female admitted to the hospital with acute hypoxic respiratory failure -patient presented initially on 15 L of oxygen -she has been successfully tapered to 2 L of oxygen -she is typically not on oxygen at home 2. COVID-19 pneumonia -patient tested positive for SARs Covid-2 in the emergency room -patient had exposure to her sister who is currently hospitalized and now at [facility] with COVID-19 -Chest x-ray and CT scan confirmed bilateral ground glass opacities -patient presents with lymphopenia and mild thrombocytopenia -patient corroborates anomina -given her markedly elevated procalcitonin will empirically treat for superimposed bacterial infection as well -patient will be started on Remdesevir 200 mg IV x1 followed with 100 mg daily for total of 5 days. She will be initiated on Decadron 6 mg p.o. daily for 10 days or until she is discharged -will continue to taper oxygen as she tolerated -D-dimer elevated at 453, will start her on Lovenox for DVT prophylaxis. Would empirically check D-dimer if she deteriorates consider therapeutic anticoagulation for a D-dimer of greater than 1500 -patient does not appear to be dehydrated, will defer IV hydration at this time -patient is a full code will note that her record accordingly 3. Type 2 diabetes -patient typically maintained on glipizide and Glucophage -will discontinue both here in the hospital -given use of Decadron for treatment of COVID-19 start her on basal bolus insulin -will titrate both basal and bolus insulin based on glucose here in the hospital 4. Hypertension -patient reports she takes both lisinopril and enalapril -will hold enalapril but continue lisinopril -will continue amlodipine at this time -will continue b.i.d. Lasix as well 5. Hyperlipidemia -continue statin 6. Coronary artery disease -will continue aspirin statin, beta-cee -continue Isordil 7. Cirrhosis -secondary to hepatitis-C, and alcohol use -patient reportedly with a hepatoma for which she is being treated in [place] with intermittent laser therapy -will monitor her closely 8. Hypothyroid -continue L-thyroxine Patient will be admitted to the hospital as an inpatient as we anticipate a great length of stay greater than 48 hours. Patient is a full code which has been noted in her record. She is on Lovenox for DVT prophylaxis Patient does have a surrogate decision maker who is her nephew.
[2020-03-16] MEDS: ENOXAPARIN 40 MG/0.4 ML SYRINGE SUBCUT (14:33)
[2020-03-16] MEDS: REMDESIVIR 200 MG in SODIUM CHLORIDE 0.9% 210 ML 250 ML IV (14:35)
[2020-03-16] MEDS: DEXAMETHASONE 4 MG/ML VIAL 6 MG PO (14:35)
--- NOTE | 2020-03-16 16:14 | PC.NURSE ---
Day Shift- report rec'd from ED RN at 1210. Pt arrived to unit room 219 at 1227 via stretcher. Pt able to walk to bed from stretcher. pt currently in COVID-19 isolation, special droplet/contact precautions. Pt oriented to call light, bed, alarm, bed functions, use of oxygen. Pt reports having intermittent moist cough with thick yellow sputum production. Currently on 2L NC, O2 sat 97%. Pt A&OX4, appropriate. Pt states her sister Yanira who she lives with is currently at [facility] with COVID-19. Pt's sister Danelle called for a brief update around 1335, pt aware. Pt has her own medication bottles in a purse like bag. Evening RN aware to have them sent to pharmacy to store until pt discharge and pt okay with this process.
[2020-03-16] MEDS: levoFLOXacin 750 MG/150 ML PIGGYBACK 100 MG IV (16:35)
[2020-03-16] MEDS: INSULIN ASPART 100 UNIT/ML INSULN PEN SUBCUT ×2 (16:37→21:48)
[2020-03-16 20:17] LABS: Hemoglobin A1C% w Est Avg Glu 5.8 % (4.0-6.0)
[2020-03-16] MEDS: FUROSEMIDE 20 MG TABLET PO (21:47)
[2020-03-16] MEDS: DOCUSATE 100 MG CAPSULE PO (21:47)
[2020-03-16] MEDS: ATORVASTATIN 10 MG TABLET PO (21:47)
[2020-03-16] MEDS: METOPROLOL ER 50 MG TABLET PO (21:47)
[2020-03-16] MEDS: INSULIN GLARGINE 100 UNIT/ML 3ML PEN 10 UNIT SUBCUT (21:49)
--- NOTE | 2020-03-16 22:33 | PC.NURSE ---
Assumed care of pt at 1500. Pt resting in bed. On special droplet isolation. Pt remains on 2L NC, sats 93-95%, SOB on RA and during ambulation to bathroom. Intermittent cough with yellow sputum. Home meds sent to pharmacy. Calling appropriately for needs. Bed alarm on.
[2020-03-17] VITALS (10 sets, daily range): BP systolic 124–176; BP diastolic 64–97; PULSE 77–88; RESP 20–24; TEMP 36–36.9; O2SAT 90–97
--- NOTE | 2020-03-17 01:18 | PC.NURSE ---
Addendum entered by Sylvie Grove R.N. 03/17/20 07:11: 7 beat run of V tach at approx 0600. Pt asymptomatic, BP elevated but pt had just ambulated to BR. SALVATORE to LOLLY Harvey, no new orders. Original Note: Pt reports mild SOB w/rest that increases w/any exertion. O2 sats drop from 94% to 87% w/exertion. Explained to pt that it is imperative she call immediately for any change in her breathing. Asked that she communicate an increase in cough, SOB or feeling that she may have spiked a temp. Pt stated that she would use her call light appropriately.
[2020-03-17] MEDS: LEVOTHYROXINE 75 MCG TABLET PO (06:05)
[2020-03-17] MEDS: ISOSORBIDE MONONITRATE ER 30 MG TABLET PO (06:44)
[2020-03-17] MEDS: ENOXAPARIN 40 MG/0.4 ML SYRINGE SUBCUT (09:41)
[2020-03-17] MEDS: REMDESIVIR 100 MG in SODIUM CHLORIDE 0.9% 230 ML 250 ML IV (09:41)
[2020-03-17] MEDS: ONDANSETRON 4 MG/2 ML INJ IV (09:41)
[2020-03-17] MEDS: SODIUM CHLORIDE 0.9% FLUSH 10 ML IV ×2 (09:41→20:16)
[2020-03-17] MEDS: FUROSEMIDE 20 MG TABLET PO ×2 (09:42→20:15)
[2020-03-17] MEDS: AMLODIPINE 5 MG TABLET PO (09:42)
[2020-03-17] MEDS: dexAMETHasone 4 MG TABLET 6 MG PO (09:42)
[2020-03-17] MEDS: DOCUSATE 100 MG CAPSULE PO ×2 (09:42→20:15)
[2020-03-17] MEDS: lisinopriL 20 MG TABLET 40 MG PO (09:43)
[2020-03-17] MEDS: INSULIN ASPART 100 UNIT/ML INSULN PEN SUBCUT ×4 (09:43→22:15)
[2020-03-17] MEDS: METOPROLOL ER 50 MG TABLET PO ×2 (09:43→20:15)
[2020-03-17] MEDS: ASPIRIN EC 81 MG TABLET PO (09:43)
--- NOTE | 2020-03-17 12:13 | PM.PN.1 ---
Subjective Subjective Date Patient Seen: 03/17/20 Interval history: Patient is 64-year-old female with history of type 2 diabetes, hypertension, CAD, hep C, hepatoma admitted with respiratory failure due to COVID-19 pneumonia with possible bacterial superimposed pneumonia. She is on REM does severe, dexamethasone and Levaquin. Patient states she is feeling better, felt less short of breath when got up from bed to bathroom. Denies dyspnea at rest. Fevers seems to be resolving. She does have cough productive of mucus and having some bleeding from her nose. She feels constipated. Exam Vital Signs (past 8 hours): - 03/17/20 06:30 03/17/20 08:30 03/17/20 09:45 Temperature 98.5 F 98.0 F Pulse Rate 88 86 Respiratory Rate 22 Blood Pressure 163/97 H 132/69 Pulse Oximetry 94 90 L 95 Oxygen Delivery Method Nasal Cannula Oxygen Flow Rate 3 Narrative Exam Narrative: General: Alert and pleasant female in no acute distress Lungs: There are some crackles in the right upper lobe, no wheeze Heart: Regular rhythm Extremities: No edema Neurological: Sensorium intact, nonfocal Skin: No rash or petechiae Objective Labs Result Diagrams: 03/16/20 09:03 03/16/20 09:03 Labs: Laboratory Results - last 24 hr 03/16/20 09:03 Hemoglobin A1c 5.8 Assessment & Plan Assessment & Plan narrative: Patient is 64-year-old female with history of type 2 diabetes, hypertension, CAD, hep C, hepatoma admitted with respiratory failure due to COVID-19 pneumonia with possible bacterial superimposed pneumonia. 1. Acute hypoxic respiratory failure due to COVID-19 pneumonia with possible superimposed bacterial pneumonia, present on admission, active -patient presented initially on 15 L of oxygen but titrated fairly rapidly down to 3 L nasal cannula -chest x-ray and CT with bilateral diffuse ground-glass opacities -labs with lymphopenia and mild thrombocytopenia but markedly elevated procalcitonin of 8 concerning for superimposed bacterial infection -started on from dose for to 100 mg IV x1 followed by 100 mg IV daily for total of 5 days -Decadron 6 mg p.o. daily for up to 10 days or until discharge -Levaquin 750 mg IV daily -titrate supplemental O2 to maintain sats greater than 90% -Recheck CBC, procalcitonin in a.m. 2. Type 2 diabetes -patient typically maintained on glipizide and Glucophage -hold glipizide, hold metformin x [address] contrast -given use of Decadron for treatment of COVID-19 start her on basal bolus insulin -Lantus 10 units HS and NovoLog sliding scale 3. Hypertension -patient reports she takes both lisinopril and enalapril -will hold enalapril but continue lisinopril -continue amlodipine at this time -continue b.i.d. Lasix as well 4. Hyperlipidemia -continue statin 5. Coronary artery disease -continue aspirin statin, beta-cee, isosorbide per home routine 6. Cirrhosis -secondary to hepatitis-C, and alcohol use -patient reportedly with a hepatoma for which she is being treated in [place] with intermittent laser therapy 7. Hypothyroid -continue L-thyroxine 8. Urinary bacteria, present on admission -urine culture positive for strep agalactiae -likely asymptomatic bacteriuria without clinical UTI as patient denies urinary symptoms Patient is a full code which has been noted in her record. She is on Lovenox for DVT prophylaxis Patient does have a surrogate decision maker who is her nephew. Quality VTE Deep Vein Thrombosis/Pulmonary Embolism Present on Admission: No
--- NOTE | 2020-03-17 12:15 | CM.IDA ---
Initial DCP Assessment Note Patient is a 64 yo female, resident of [facility]. Patient presents w/ SOB, h/o type 2 diabetes, herat disease, hep v with liver CA, found to have COVID-19+ pneumonia. PCP: Rupali Roberts Payer: [facility] Reviewed chart. Patient currently COVID-19 + this [employer] taking safety precaution and remaining out of the room at this time. Will plan to follow very closely over the next 24 hrs and address DC needs or concerns as they arise. Therapies likely will be pending when appropriate, might assist in developing safe DCP SELMA Bush
--- NOTE | 2020-03-17 15:59 | PC.NURSE ---
Addendum entered by Anastasia Fountain R.N. 03/18/20 14:39: Pt up to shower with SBA, O2 removed at this time. Pt back sitting on edge of bed, O2 sat 89% on RA, O2 NC 1L placed back on. Pt stated feeling better overall. did not appear short of breath ambulating to BR or during shower. Addendum entered by Anastasia Fountain R.N. 03/18/20 13:17: Pt's sister Danelle called this Rn, missed call. Saw pt around 1245, and spoke with Danelle in pt's room. Pt had scant BM prior to lunch, passing flatus. O2 sat 90-91% on 1L NC. On continuous O2 monitoring. Original Note: Day Shift- Pt remains in droplet/contact isolation precautions. Pt A&OX4, able to make needs known using call light, uses call light for assist to BR. O2 sat 95-97% on 3L NC, decreased to 1L NC, O2 sat 92-93%. On continuous O2 monitoring. AE diminished throughout lung siegel, more so to bases with coarseness throughout. Pt has intermittent strong cough. Pt reports yellow thick, curdle like sputum. Denies shortness of breath on rest, states gets SOBOE walking to BR. Pt tolerating meal trays, drinking fluids/water. No BM this shift, pt given scheduled stool softener this AM, Dr. Card aware at 1100, pt's last BM was 8/11 and diarrhea, none since, pt passing flatus. Dr. Card placed new order for milk of Magnesia prn. Bed alarm on, call lig and phone within reach. Pt spoke with her sister Danelle around 1000 as pt was concerned about her dogs at home. Danelle had called this RN earlier in the shift and this RN unable to contact Danelle back at that time. Pt's niece Angie called at 0825, asking for discharge update. Unknown at this time, pt aware of this conversation.
[2020-03-17] MEDS: levoFLOXacin 750 MG/150 ML PIGGYBACK 150 MG IV (16:33)
[2020-03-17] MEDS: ATORVASTATIN 10 MG TABLET PO (20:15)
[2020-03-17] MEDS: INSULIN GLARGINE 100 UNIT/ML 3ML PEN 10 UNIT SUBCUT (22:15)
[2020-03-18] VITALS (14 sets, daily range): BP systolic 120–147; BP diastolic 61–75; PULSE 58–73; RESP 16–20; TEMP 36.3–36.7; O2SAT 1–94
[2020-03-18 05:49] LABS: Add Manual Diff / Slide Review NO; Basophils Absolute Auto 0 /uL (0-100); Basophils Percent Auto 0.1 % (0-2); Eosinophils Absolute Auto 0 /uL (0-450); Hematocrit 40.8 % (36-46); Hemoglobin 13.4 g/dL (12.0-16.0); Lymphocytes Absolute Auto 500 /uL (1100-4500); Mean Corpuscular Hemoglobin 28.6 PG (26-34); Mean Corpuscular Volume 86.7 fL (80-100); Monocytes Absolute Auto 500 /uL (0-900); Neutrophils Absolute Auto 6000 /uL (1500-7000); Neutrophils Percent Auto 85.9 % (50-75); Platelet Count 121 X10^3/uL (150-400); Red Cell Distribution Width 14.3 % (11.6-14.8)
[2020-03-18 05:56] LABS: BUN Creatinine Ratio 26.1 (6-22); Blood Urea Nitrogen 23 mg/dL (7-17); Calcium 8.5 mg/dL (8.4-10.2); Carbon Dioxide 21 mmol/L (22-32); Chloride 113 mmol/L (98-107); Estimated Glomerular Filt Rate > 60.0 mL/min (>60); Glucose 162 mg/dL (80-110); HEMOLYSIS < 15 (0-50); Potassium 4.3 mmol/L (3.4-5.1); Sodium 140 mmol/L (137-145)
[2020-03-18 06:22] LABS: Procalcitonin 3.66 ng/mL (<0.5)
[2020-03-18] MEDS: LEVOTHYROXINE 75 MCG TABLET PO (06:33)
[2020-03-18] MEDS: ISOSORBIDE MONONITRATE ER 30 MG TABLET PO (06:33)
[2020-03-18] MEDS: INSULIN ASPART 100 UNIT/ML INSULN PEN SUBCUT ×4 (09:15→21:25)
[2020-03-18] MEDS: MAGNESIUM HYDROXIDE 30 ML UDC PO (09:17)
[2020-03-18] MEDS: METOPROLOL ER 50 MG TABLET PO (09:17)
[2020-03-18] MEDS: FUROSEMIDE 20 MG TABLET PO ×2 (09:17→21:25)
[2020-03-18] MEDS: DOCUSATE 100 MG CAPSULE PO ×2 (09:17→21:25)
[2020-03-18] MEDS: lisinopriL 20 MG TABLET 40 MG PO (09:17)
[2020-03-18] MEDS: AMLODIPINE 5 MG TABLET PO (09:17)
[2020-03-18] MEDS: ENOXAPARIN 40 MG/0.4 ML SYRINGE SUBCUT (09:17)
[2020-03-18] MEDS: ASPIRIN EC 81 MG TABLET PO (09:17)
[2020-03-18] MEDS: dexAMETHasone 4 MG TABLET 6 MG PO (09:18)
[2020-03-18] MEDS: SODIUM CHLORIDE 0.9% FLUSH 10 ML IV ×2 (09:18→21:28)
[2020-03-18] MEDS: REMDESIVIR 100 MG in SODIUM CHLORIDE 0.9% 230 ML 250 ML IV (09:32)
[2020-03-18] MEDS: levoFLOXacin 750 MG/150 ML PIGGYBACK 100 MG IV (14:08)
--- NOTE | 2020-03-18 17:16 | P.PN_ITS ---
Subjective Subjective Date Patient Seen: 03/18/20 Interval history: Patient is 64-year-old female with history of type 2 diabetes, hypertension, CAD, hep C, hepatoma admitted with respiratory failure due to COVID-19 pneumonia with possible bacterial superimposed pneumonia. She is on Remdesivir, dexamethasone and Levaquin. Patient continues to feel better with less shortness of breath. O2 titrated down to 1 L nasal cannula. She is eating okay. Sense of smell is also coming back. Exam Vital Signs (past 8 hours): - 03/18/20 09:25 03/18/20 12:15 03/18/20 13:00 Temperature 97.4 F L Pulse Rate 73 Respiratory Rate 20 Blood Pressure 120/69 Pulse Oximetry 91 93 91 03/18/20 13:04 03/18/20 14:38 03/18/20 16:05 Temperature 98.1 F Pulse Rate 63 Respiratory Rate 19 Blood Pressure 131/75 Pulse Oximetry 1 L 89 L 93 Oxygen Delivery Method Room Air Oxygen Flow Rate 1 Narrative Exam Narrative: General: Alert pleasant and cooperative in no acute distress Lungs: Clear to auscultation Heart: Regular rhythm Abdomen: Soft and nontender Neurological: Sensorium intact Objective Labs Result Diagrams: 03/18/20 05:10 03/18/20 05:10 Labs: Laboratory Results - last 24 hr 03/18/20 03/18/20 03/18/20 05:10 05:10 05:10 WBC 7.0 RBC 4.70 Hgb 13.4 Hct 40.8 MCV 86.7 MCH 28.6 MCHC 33.0 RDW 14.3 Plt Count 121 L Neut % (Auto) 85.9 H Lymph % (Auto) 7.0 L Calloway % (Auto) 7.0 Eos % (Auto) 0.0 L Baso % (Auto) 0.1 Neut # (Auto) 6000 Lymph # (Auto) 500 L Calloway # (Auto) 500 Eos # (Auto) 0 Baso # (Auto) 0 Sodium 140 Potassium 4.3 Chloride 113 H Carbon Dioxide 21 L BUN 23 H Creatinine 0.88 Estimated GFR > 60.0 BUN/Creatinine Ratio 26.1 H Glucose 162 H Calcium 8.5 Procalcitonin 3.66 H Assessment & Plan Assessment & Plan narrative: Patient is 64-year-old female with history of type 2 diabetes, hypertension, CAD, hep C, hepatoma admitted with respiratory failure due to COVID-19 pneumonia with possible bacterial superimposed pneumonia. 1. Acute hypoxic respiratory failure due to COVID-19 pneumonia with possible superimposed bacterial pneumonia, present on admission, active -patient presented initially on 15 L of oxygen but titrated fairly rapidly down to 3 L nasal cannula and currently down to 1 L NC -chest x-ray and CT with bilateral diffuse ground-glass opacities -labs with lymphopenia and mild thrombocytopenia but markedly elevated proc alcitonin of 8 concerning for superimposed bacterial infection -procalcitonin is improved by greater than 50% -started on Remdesevir 200 mg IV x1 followed by 100 mg IV daily for total of 5 days -Decadron 6 mg p.o. daily for up to 10 days or until discharge -Levaquin 750 mg IV daily for bacterial pneumonia superinfection -titrate supplemental O2 to maintain sats greater than 90% 2. Type 2 diabetes -patient typically maintained on glipizide and Glucophage -metformin held times 48 hours post contrast -resumed patient's glipizide and metformin due to elevated sugar -also on Lantus 10 units HS and NovoLog sliding scale 3. Hypertension -patient reports she takes both lisinopril and enalapril -will hold enalapril but continue lisinopril -continue amlodipine at this time -continue b.i.d. Lasix as well per home routine 4. Hyperlipidemia -continue statin 5. Coronary artery disease -continue aspirin statin, beta-cee, isosorbide per home routine 6. Cirrhosis -secondary to hepatitis-C, and alcohol use -patient reportedly with a hepatoma for which she is being treated in [place] with intermittent laser therapy 7. Hypothyroid -continue L-thyroxine 8. Urinary bacteria, present on admission -urine culture positive for strep agalactiae -likely asymptomatic bacteriuria without clinical UTI as patient denies urinary symptoms Patient is a full code which has been noted in her record. She is on Lovenox for DVT prophylaxis Patient does have a surrogate decision maker who is her nephew. Quality VTE Deep Vein Thrombosis/Pulmonary Embolism Present on Admission: No
[2020-03-18] MEDS: ACETAMINOPHEN 325 MG TABLET 650 MG PO (17:47)
[2020-03-18] MEDS: ATORVASTATIN 10 MG TABLET PO (21:24)
[2020-03-18] MEDS: MELATONIN 3 MG TABLET 6 MG PO (21:24)
[2020-03-18] MEDS: INSULIN GLARGINE 100 UNIT/ML 3ML PEN 10 UNIT SUBCUT (21:25)
[2020-03-19] VITALS (14 sets, daily range): BP systolic 109–140; BP diastolic 55–67; PULSE 50–62; RESP 16–18; TEMP 36.4–36.6; O2SAT 89–96
[2020-03-19] MEDS: LEVOTHYROXINE 75 MCG TABLET PO (06:22)
[2020-03-19] MEDS: ISOSORBIDE MONONITRATE ER 30 MG TABLET PO (06:22)
[2020-03-19] MEDS: glipiZIDE 5 MG TABLET 2.5 MG PO (08:48)
[2020-03-19] MEDS: AMLODIPINE 5 MG TABLET PO (08:52)
[2020-03-19] MEDS: METFORMIN HCL 500 MG TABLET 1000 MG PO (08:52)
[2020-03-19] MEDS: ASPIRIN EC 81 MG TABLET PO (08:52)
[2020-03-19] MEDS: DOCUSATE 100 MG CAPSULE PO ×2 (08:53→21:49)
[2020-03-19] MEDS: ENOXAPARIN 40 MG/0.4 ML SYRINGE SUBCUT (08:53)
[2020-03-19] MEDS: FUROSEMIDE 20 MG TABLET PO ×2 (08:53→21:50)
[2020-03-19] MEDS: lisinopriL 20 MG TABLET 40 MG PO (08:53)
[2020-03-19] MEDS: dexAMETHasone 4 MG TABLET 6 MG PO (08:53)
[2020-03-19] MEDS: METOPROLOL ER 50 MG TABLET PO ×2 (08:53→21:50)
[2020-03-19] MEDS: SODIUM CHLORIDE 0.9% 250 ML 21 ML IV (08:54)
[2020-03-19] MEDS: SODIUM CHLORIDE 0.9% FLUSH 10 ML IV ×2 (08:54→21:53)
[2020-03-19] MEDS: REMDESIVIR 100 MG in SODIUM CHLORIDE 0.9% 230 ML 250 ML IV (08:56)
--- NOTE | 2020-03-19 13:37 | CM.DPNOTE ---
DCP Cont According to Dr Leblanc and BRETT Kat, patient will DC home when off O2 and not SOB w/activity. No expected needs from DCP team. Will follow closely and r/o needs closer to DC P: DC home w/family expected, family to transport JW
--- NOTE | 2020-03-19 15:12 | PM.PN.1 ---
Subjective Subjective Date Patient Seen: 03/19/20 Interval history: Patient is a 64-year-old female with a history of hypertension hyperlipidemia type 2 diabetes admitted to the hospital with Covert pneumonia. Today is day 3 of Remdesivir plus Decadron. Patient feels that she is making significant improvement. Her oxygenation at rest is 95-96. However with ambulation she desaturates to 89%. Despite that she feels that she is making significant improvement. Her only complaint is constipation. Exam Vital Signs (past 8 hours): - 03/19/20 08:38 03/19/20 09:00 03/19/20 10:00 Temperature 97.8 F Pulse Rate 50 L 62 Respiratory Rate 16 18 Blood Pressure 135/59 L Pulse Oximetry 95 92 91 03/19/20 11:00 03/19/20 12:15 03/19/20 12:40 Temperature 97.9 F Pulse Rate 60 Respiratory Rate Blood Pressure 140/60 Pulse Oximetry 92 92 92 03/19/20 12:52 03/19/20 14:35 Temperature Pulse Rate Respiratory Rate 16 Blood Pressure Pulse Oximetry 89 L 94 Oxygen Delivery Method Nasal Cannula Oxygen Flow Rate 0 Narrative Exam Narrative: Pleasant female resting comfortably in no obvious distress Lungs: Clear to auscultation Cardiac exam: Regular rate and rhythm normal S1-S2 Abdomen: Soft nontender nondistended Extremities: No edema Objective Labs Result Diagrams: 03/18/20 05:10 03/18/20 05:10 Assessment & Plan Assessment & Plan narrative: Impression 1. 64-year-old female admitted to the hospital with COVID-19 pneumonia -given the patient's markedly elevated procalcitonin antibiotics were added, levofloxacin for superimposed bacterial pneumonia -procalcitonin decreased from 8-3.66 -patient continues to improve clinically but has exertional hypoxemia -will continue REMdesivir plus Decadron for the treatment course or until discharge -continue levofloxacin for full 5 day -anticipate discharge in 1-2 days once the patient is no longer hypoxic with activity 2. Acute hypoxemic respiratory failure, improved -patient presented requiring 15 L of oxygen -she has been titrated off oxygen at rest but continues to desaturate with activity -hypoxemia overall improved 3. Type 2 diabetes -continue current treatment plan 4. Hypothyroid -continue all thyroid 5. History of coronary artery disease -continue aspirin statin and beta-cee 6. Hypertension -continue current antihypertensive therapy with metoprolol , lisinopril, and amlodipine Patient continues to make significant improved anticipate discharge home soon COVID-19 COVID-19 status: Positive Quality VTE Deep Vein Thrombosis/Pulmonary Embolism Present on Admission: No
[2020-03-19] MEDS: levoFLOXacin 750 MG/150 ML PIGGYBACK 100 MG IV (15:27)
[2020-03-19] MEDS: INSULIN ASPART 100 UNIT/ML INSULN PEN SUBCUT ×2 (16:57→21:52)
[2020-03-19] MEDS: MELATONIN 3 MG TABLET 6 MG PO (21:49)
[2020-03-19] MEDS: ATORVASTATIN 10 MG TABLET PO (21:50)
[2020-03-19] MEDS: ACETAMINOPHEN 325 MG TABLET 650 MG PO (21:50)
[2020-03-19] MEDS: INSULIN GLARGINE 100 UNIT/ML 3ML PEN 10 UNIT SUBCUT (21:52)
[2020-03-20] VITALS: BP 141/58; PULSE 52; RESP 16; TEMP 36.6; O2SAT 91
[2020-03-20 00:10] VITALS: O2SAT 91
[2020-03-20 00:14] VITALS: BP 141/58; PULSE 52
[2020-03-20 05:00] VITALS: BP 174/66; PULSE 62; RESP 16; TEMP 36.9; O2SAT 92
[2020-03-20] MEDS: LEVOTHYROXINE 75 MCG TABLET PO (06:35)
[2020-03-20] MEDS: ISOSORBIDE MONONITRATE ER 30 MG TABLET PO (06:36)
[2020-03-20] MEDS: ASPIRIN EC 81 MG TABLET PO (08:00)
[2020-03-20] MEDS: AMLODIPINE 5 MG TABLET PO (08:00)
[2020-03-20] MEDS: lisinopriL 20 MG TABLET 40 MG PO (08:00)
[2020-03-20] MEDS: ENOXAPARIN 40 MG/0.4 ML SYRINGE SUBCUT (08:01)
[2020-03-20] MEDS: DOCUSATE 100 MG CAPSULE PO (08:01)
[2020-03-20] MEDS: METFORMIN HCL 500 MG TABLET 1000 MG PO (08:01)
[2020-03-20] MEDS: glipiZIDE 5 MG TABLET 2.5 MG PO (08:01)
[2020-03-20] MEDS: METOPROLOL ER 50 MG TABLET PO (08:01)
[2020-03-20] MEDS: SODIUM CHLORIDE 0.9% FLUSH 10 ML IV (08:01)
[2020-03-20] MEDS: FUROSEMIDE 20 MG TABLET PO (08:01)
[2020-03-20] MEDS: dexAMETHasone 4 MG TABLET 6 MG PO (08:02)
[2020-03-20 08:21] VITALS: PULSE 62; RESP 16; O2SAT 92
[2020-03-20 08:44] VITALS: BP 141/66; PULSE 60; RESP 16; TEMP 36.7; O2SAT 92
[2020-03-20] MEDS: REMDESIVIR 100 MG in SODIUM CHLORIDE 0.9% 230 ML 250 ML IV (10:20)
--- NOTE | 2020-03-20 10:23 | P.DS_ITS ---
History of Present Illness History of Present Illness Chief complaint: fever Narrative: The patient is a 64-year-old female with a history of type 2 diabetes, hypertension, coronary disease, hep C with liver cancer who presented to the hospital due to fever shortness of breath and is found to be COVID-19 positive. The patient reports that her sister developed covert pneumonia about 4 weeks ago. Her sisters hospitalized at [facility]. She has a nephew who also is COVID-19 positive. The patient has been monitoring her fever daily. She noted a temperature today of over 100. In addition she reported increasing shortness of breath. She has a cough with minimal productive sputum. Four days ago she lost her ability to smell. She has had no wheezing. She reports diarrhea which she is so sees with the use of metformin. The patient was seen and evaluated in the emergency room. Chest x-ray showed bilateral interstitial infiltrates. Chest CT was pending at the time of this dictation. The patient was found to be hypoxic and presented on 15 L of oxygen. She was able to be tapered down to 2 L and managed a O2 sat of 94%. She is admitted to the hospital at this time for COVID-19 pneumonia. Discharge Providers Provider Date of admission: 03/16/20 10:51 Discharge Date: 03/20/20 Primary care physician: Rupali Roberts PA-C Consults: 03/16/20 16:35 Consult to Dietitian, Adult Routine Comment: Reason For Exam: decreased appetite over 2 weeks, has covid 19 Discharge provider: Destiny Leblanc MD Summary Hospital Course Discharge Diagnosis: 1. Acute hypoxic respiratory failure, present on admission, now resolved 2. COVID-19 pneumonia 3. Probable bacterial superinfection 4. Hypertension 5. Hyperlipidemia 6. Type 2 diabetes 7. Coronary artery disease 8. History of hep C 9. Hepatoma Hospital Course: Patient was admitted to the hospital for acute respiratory failure secondary to COVID-19 pneumonia. She had an elevated pro calcitonin and was started on levofloxacin for bacterial superinfection. The patient defervesced quite nicely. She had improvement of her procalcitonin from 8 down to 3.66. She was treated with Remdesivir and Decadron. She had improvement of her oxygenation and was able to be weaned off oxygen at rest. She was hypoxic yesterday with activity desaturating to 89%. Today she has a room air sat of 92%. When she ambulates it drops to 91%. The patient has no further cough. Overall she feels significantly improved. She is anxious to discharge home. The patient has no other symptoms at this time. She is deemed appropriate for discharge and arrangements were made for her to discharge home. Status at Discharge Cognitive/behavioral status at discharge: oriented Functional status at discharge: independent ambulation Overall status at discharge: patient is back to baseline Time Spent with Patient Time spent: Less than 30 minutes Exam Vital Signs (past 8 hours): - 03/20/20 05:00 03/20/20 08:21 03/20/20 08:44 Temperature 98.4 F 98.0 F Pulse Rate 62 62 60 Respiratory Rate 16 16 16 Blood Pressure 174/66 H 141/66 H Pulse Oximetry 92 92 92 Oxygen Delivery Method Room Air Oxygen Flow Rate 0 Narrative Exam Narrative: Pleasant female in no acute distress Lungs: Decreased breath sounds with occasional basilar crackles Cardiac exam: Regular rate and rhythm normal S1-S2 Abdomen: Soft nontender nondistended Extremities: No edema Objective Labs Result Diagrams: 03/18/20 05:10 03/18/20 05:10 Discharge Assessment & Plan Assessment and Plan Assessment: 1. Acute hypoxic respiratory failure, resolved 2. COVID-19 pneumonia 3. Probable bacterial superinfection 4. Hypertension 5. Hyperlipidemia 6. Type 2 DM Plan of Treatment: Discharge home Continue levofloxacin for 1 additional day Video visit with her PCP next week Discharge Plan Discharge Plan Patient Disposition: Home Discharge orders & Medications Prescriptions: New levofloxacin 750 mg tablet 750 mg PO DAILY Qty: 1 RF: 0 Continued isosorbide mononitrate 30 MG tablet extended release 24 hr 30 mg PO Q DAY Qty: 0 RF: 0 enalapril maleate 20 MG tablet 20 mg PO BID Qty: 0 RF: 0 metoprolol tartrate 50 MG tablet 50 mg PO BID Qty: 0 RF: 0 aspirin 81 MG tablet,chewable 81 mg PO QDAY Qty: 0 RF: 0 levothyroxine [Synthroid] 75 MCG tablet 0.075 mg PO QDAY Qty: 0 RF: 0 amlodipine 5 mg tablet 5 mg PO DAILY RF: 0 atorvastatin 10 mg tablet 10 mg PO DAILY RF: 0 metformin 850 mg tablet 850 mg PO DAILY RF: 0 glipizide 2.5 mg tablet extended release 24hr 2.5 mg PO DAILY RF: 0 furosemide 20 mg tablet 20 mg PO BID RF: 0 metoprolol succinate 25 mg tablet extended release 24 hr 25 mg PO DAILY RF: 0 lisinopril 40 mg tablet 40 mg PO DAILY RF: 0 Follow up/Referrals: Rupali Roberts PA-C [Primary Care Provider] - Discharge Health Status Multidrug resistant organism: No MDRO Diet/Activity/Treatments Diet: Carb-consistent/Diabetic, Low-fat and Low-sodium Activity: as tolerated Oxygen: none Skin/Wound/Dressing Care Report to your healthcare provider any signs of infection, such as:: chills, fever Discharge Data Primary Care Provider: Rupali Roberts Quality VTE Deep Vein Thrombosis/Pulmonary Embolism Present on Admission: No
--- NOTE | 2020-03-20 11:32 | CM.DPC ---
DCP Continues: EMR reviewed: CM/RN spoke with patients BRETT Kat today about concerns revolving around patient transportation home at D/C. Due to the fact that patient is Covid +. CM/RN called [employer] and [employer] to check if they are transporting Covid + patients and they are not at this time. CM/RN called medicaid transportation but they are closed today and called [employer] which is their weekend go to and they do not transport covid+ patients either. CM/Rn called the [facility] but they were not open or available due to it being the weekend. Patients Nurse North talked with patients sister Judy [phone] and she stated she will not pick patient up because she doesn't want to get Covid 19. Patients sister is going to talk with patients boyfriend to see if he will come and picker / packer the patient and bring her home. Cm/RN did talk with [facility] for [facility]LS possible transfer home if patient can't find a ride but explained that BLS will cost out of pocket $600 and then $12 a mile to get home. Patient stated she doesn't have that money so she stated she will work with her family to get a ride home. Aracelis Arroyo RN
[2020-03-20] MEDS: levoFLOXacin 250 MG TABLET 750 MG PO (12:03)
--- NOTE | 2020-03-20 12:38 | PC.NURSE ---
Patient denies shortness of breath today, maintained oxygen saturation of 91-93% on room air during ambulation. Denies other complaints, and eager for discharge to home. Patient to complete one more day of oral antibiotic as prescribed, called into [facility] per patient request and someone will pick it up for her tomorrow as patient is on quaranteen/isolation. Patient states understanding of home care and discharge instructions and has no further questions or concerns at this time.
== END 2020-03-20 13:04 | disposition home or self-care (01) | DRG 177 ==
LOC: ED 10:23 → AC 11:29
PROVIDERS: Internal Medicine; Admitting Provider Internal Medicine; Emergency Provider Emergency Medicine; Family Provider Physician Assistant; PCP Physician Assistant; Referring Provider Emergency Medicine; Visit Provider Internal Medicine
DX: U07.1 COVID-19 (principal); J12.89 Other viral pneumonia; J15.9 Unspecified bacterial pneumonia; J96.01 Acute respiratory failure with hypoxia; C22.8 Malignant neoplasm of liver, primary, unspecified as to type; K74.69 Other cirrhosis of liver; B18.2 Chronic viral hepatitis C; E11.9 Type 2 diabetes mellitus without complications; I10 Essential (primary) hypertension; I25.10 Atherosclerotic heart disease of native coronary artery without angina pectoris; E03.9 Hypothyroidism, unspecified; Z79.84 Long term (current) use of oral hypoglycemic drugs
CPT/HCPCS: 36415; 36600; 71045; 71275; 80048; 80053; 81003; 81015; 82550; 82805; 82962; 83036; 83605; 83880; 84145; 84484; 85025; 85379; 85730; 87040; 87077; 87086; 87147; 87635; 93005; 94762; 96360; 99284; 99285; J1100; J1650; J1956; J2405; Q9967

== ENCOUNTER → 2020-09-13 08:52 | Outpatient (CLI) | payer OTHER, MEDICAID, SELFPAY ==
[2020-03-16 12:45] VITALS: BMI 32.1
--- NOTE | 2020-09-13 | DI.US.S_ITS ---
PROCEDURE: US ABDOMEN COMPLETE INDICATIONS: LOWER ABDOMINAL PAIN TECHNIQUE: Real-time scanning was performed of the abdominal and retroperitoneal organs, with image documentation. COMPARISON: [facility], US, ABDOMEN SONOGRAM, 02/22/2014, 7:34. [facility], CT, CT ABDOMEN PELVIS WITH CONTRAST, 02/25/2018, 10:40. [facility], MR, ABDOMEN W&W/O CONTRAST, 03/10/2014, 7:43. [facility], CT, CT ANGIO CHEST PE, 03/04/2019, 18:18. [facility], CT, CT ANGIO CHEST PE PROTOCOL, 03/16/2020, 11:43. FINDINGS: Liver: Liver is normal in size and demonstrates nodular contour and heterogeneously increased echotexture suggesting cirrhosis. There is a 6.0 x 3.7 x 4.8 cm hypoechoic mass in the anterior right hepatic lobe, increased. Gallbladder: Surgically absent. Biliary ducts: Intrahepatic bile ducts are non-dilated. Extrahepatic bile duct caliber measures 2.6 mm. Normal is 6-7 mm or less in diameter, or 10 mm or less post-cholecystectomy. Pancreas: Visualized portions of the pancreas are sonographically normal. Spleen: Spleen is normal in size and homogeneous in echotexture. Kidneys: Kidneys are normal in size and echotexture. Right kidney measures 10.5 cm long; left kidney measures 9.0 cm long. No hydronephrosis or nephrolithiasis. No solid masses. Aorta: Visualized aorta is normal in caliber at less than 3 cm. Iliacs: Proximal common iliac arteries are normal in caliber at less than 2.5 cm. IVC: Intrahepatic inferior vena cava is patent. Miscellaneous: No free abdominal fluid. IMPRESSION: 1. Liver demonstrates nodular contour and heterogeneously increased echotexture suggesting cirrhosis. 2. A 6.0 x 3.7 x 4.8 cm mass in the anterior right hepatic lobe, suspicious for hepatocellular carcinoma in this patient with liver disease. The mass appears enlarged. Recommend further evaluation with CT or MRI using liver protocol. 3. No findings to explain lower abdominal pain. Dictated by: Yasmany Thao M.D. on 09/13/2020 at 12:11 Approved by: Yasmany Thao M.D. on 09/13/2020 at 12:56
--- NOTE | 2020-09-13 08:56 | DI.US.S_ITS ---
PROCEDURE: US PELVIC COMPLETE INDICATIONS: Lower abdominal pain TECHNIQUE: Real-time scanning was performed of the pelvic organs, with image documentation. Additional endovaginal scanning was necessary due to incomplete visualization of the adnexal and endometrial structures by transabdominal scanning. COMPARISON: [facility], CT, CT ABDOMEN PELVIS WITH CONTRAST, 02/25/2018, 10:40. FINDINGS: Uterus: Status post hysterectomy. Vaginal cuff within normal limits. Ovaries: Status post bilateral oophorectomy. No suspicious abnormality is seen in the bilateral adnexa. Other: No pathologic free abdominal or pelvic fluid. IMPRESSION: Status post hysterectomy and bilateral oophorectomies. No suspicious sonographic abnormality is seen in the pelvis. Dictated by: Raf Guallpa M.D. on 09/13/2020 at 12:41 Approved by: Raf Guallpa M.D. on 09/13/2020 at 12:43
== END ==
PROVIDERS: Family Provider Physician Assistant; PCP Physician Assistant; Referring Provider Family Medicine; Visit Provider Family Medicine
DX: R10.30 Lower abdominal pain, unspecified (principal); R16.0 Hepatomegaly, not elsewhere classified; Z90.710 Acquired absence of both cervix and uterus; Z90.49 Acquired absence of other specified parts of digestive tract
CPT/HCPCS: 76700; 76830; 76856

== ENCOUNTER → 2021-01-24 07:45 | Outpatient (CLI) | payer OTHER, MEDICAID, SELFPAY ==
[2020-03-16 12:45] VITALS: BMI 32.1
[2021-01-25 09:49] LABS: Interpretation Negative (Negative)
== END ==
PROVIDERS: Family Provider Physician Assistant; PCP Physician Assistant; Referring Provider Family Medicine; Visit Provider Family Medicine
DX: K21.9 Gastro-esophageal reflux disease without esophagitis (principal)
CPT/HCPCS: 36415; 83013

== ENCOUNTER → 2021-02-15 11:30 | Outpatient (CLI) | payer OTHER, MEDICAID, SELFPAY ==
[2020-03-16 12:45] VITALS: BMI 32.1
--- NOTE | 2021-02-15 12:30 | DI.CT.S_ITS ---
PROCEDURE: CT CHEST ABD PEL W CON INDICATIONS: Liver cell carcinoma TECHNIQUE: After the administration of oral and intravenous contrast, axial sections acquired from the supraclavicular neck to the pubic symphysis. Coronal and sagittal reformats were performed. For radiation dose reduction, the following was used: automated exposure control, adjustment of mA and/or kV according to patient size. COMPARISON: [facility], CT, CT ANGIO CHEST PE PROTOCOL, 03/16/2020, 11:43. [facility], US, US ABDOMEN COMPLETE, 09/13/2020, 10:38. FINDINGS: Image quality: Excellent. CHEST: Lower Neck: No enlarged lymph nodes. Thyroid: Within normal limits. Axillae: No enlarged lymph nodes. Chest Wall: Unremarkable. Lungs and Airways: No consolidation or suspicious nodules. Pleura: No pneumothorax or pleural effusions. Heart: Heart size is normal. No pericardial effusion. Extensive coronary artery calcifications Thoracic Vessels: The aorta and pulmonary arteries demonstrate normal size. Mediastinum and Wendy: No enlarged lymph nodes. Esophagus: No wall thickening. No hiatal hernia. ABDOMEN: Liver: Surface nodularity is consistent with cirrhosis. There is extensive infiltration of the right lobe of the liver with low-density mass. There is associated thrombus in the right portal vein and main portal vein, which appears to potentially be enhancing, suggesting tumor thrombus. Clot extends to the origin of the portal vein as the splenic vein and superior mesenteric vein join together.. The left lobe of the liver also has low-density mass within it, predominantly in the medial segment of the left lobe. Gallbladder: Surgically absent Biliary ducts: Unremarkable. Pancreas: Unremarkable. Spleen: There is a peripheral wedge like splenic infarction, possibly acute or subacute. Spleen is normal in size. Adrenal Glands: Unremarkable. Kidneys and Ureters: Unremarkable. Stomach and Bowel: Marked thickening of the wall of the cecum and right colon, nonspecific in the setting of hepatocellular disease. Peritoneum: With there is mild abdominal ascites and moderate pelvic ascites. Ventral Wall: No hernia. Abdominal Nodes: No retroperitoneal or mesenteric adenopathy by size criteria. Vessels: Aorta and inferior vena cava are normal in size. Extensive vascular calcifications including extensive SMA calcifications and suspicion of significant SMA stenotic disease or possibly even occlusive disease. Jaquan it Probable tumor thrombus fills the main portal vein and right portal vein. There are large left abdominal varicosities. PELVIS: Pelvic Organs: Uterus is surgically absent. Bladder: Unremarkable. Pelvic Nodes: No enlarged lymph nodes. Miscellaneous: No inguinal hernias are seen. Bones: Unremarkable. IMPRESSION: 1. No evidence of acute pulmonary process. No evidence of malignancy in the chest. 2. Severe coronary artery atherosclerotic calcifications. 3. Extensive tumor infiltration of the liver, highly suspicious for diffuse hepatoma. 3. Extensive associated portal vein thrombus, involving the entirety of the main portal vein and right portal vein with possible peripheral enhancement suggesting tumor thrombus. 4. Small, possibly acute splenic infarct. 5. 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 6. Marked thickening of the cecum and ascending colon is nonspecific in the setting of hepatocellular dysfunction. However, in this patient with significant SMA distribution atherosclerosis, cannot exclude acute bowel ischemia. 7. Mild abdominal ascites and moderate pelvic ascites. 8. Abdominal varicosities. Dictated by: Doe Araya M.D. on 02/15/2021 at 13:06 Approved by: Doe Araya M.D. on 02/15/2021 at 13:20
== END ==
PROVIDERS: Family Provider Physician Assistant; PCP Family Medicine; Referring Provider Family Medicine; Visit Provider Family Medicine
DX: C22.0 Liver cell carcinoma (principal); I25.10 Atherosclerotic heart disease of native coronary artery without angina pectoris; R18.8 Other ascites
CPT/HCPCS: 71260; 74177; Q9967

== ENCOUNTER 2021-02-15 12:55 | Emergency (ER) | payer OTHER, MEDICAID, SELFPAY ==
[2020-03-16 12:45] VITALS: BMI 32.1
[2021-02-15] VITALS (22 sets, daily range): BP systolic 113–165; BP diastolic 59–89; PULSE 89–132; RESP 17–50; TEMP 36.7; O2SAT 93–100; BMI 31.2
--- NOTE | 2021-02-15 12:58 | ED_ITS ---
HPI - General Adult <Jeff Posadas DO - Last Filed: 02/16/21 06:51> General Chief complaint: Shortness of Breath/Dyspnea Stated complaint: SOB after contrast Time Seen by Provider: 02/15/21 12:56 History of Present Illness HPI narrative: Patient is a 65-year-old female who is brought over from the DI department after obtaining a CT scan of her chest abdomen pelvis with IV contrast. Shortly afterwards she started to develop shortness of breath. No vomiting. Per report she has never had a reaction to contrast in the past. She denies chest pain but states that she is having problems getting air in. No rashes. Related Data Home Medications Medication Instructions Recorded Confirmed aspirin 81 mg chewable tablet 81 mg PO QDAY #0 07/18/12 03/16/20 enalapril maleate 20 mg tablet 20 mg PO BID #0 07/18/12 03/16/20 isosorbide mononitrate 30 mg 30 mg PO Q DAY #0 07/18/12 03/16/20 tablet,extended release 24 hr levothyroxine 75 mcg tablet 0.075 mg PO QDAY #0 07/18/12 03/16/20 (Synthroid) metoprolol tartrate 50 mg tablet 50 mg PO BID #0 07/18/12 03/16/20 amlodipine 5 mg tablet 5 mg PO DAILY 03/16/20 03/16/20 atorvastatin 10 mg tablet 10 mg PO DAILY 03/16/20 03/16/20 furosemide 20 mg tablet 20 mg PO BID 03/16/20 03/16/20 glipizide 2.5 mg tablet, extended 2.5 mg PO DAILY 03/16/20 03/16/20 release 24 hr lisinopril 40 mg tablet 40 mg PO DAILY 03/16/20 03/16/20 metformin 850 mg tablet 850 mg PO DAILY 03/16/20 03/16/20 metoprolol succinate 25 mg 25 mg PO DAILY 03/16/20 03/16/20 tablet,extended release 24 hr Previous Rx's Medication Instructions Recorded levofloxacin 750 mg tablet 750 mg PO DAILY #1 tab 03/20/20 Allergies Allergy/AdvReac Type Severity Reaction Status Date / Time Penicillins [PENICILLINS] Allergy Severe HIVES, SOB Verified 03/16/20 09:23 hydrocodone [HYDROCODONE] AdvReac Mild ITCHING Verified 03/16/20 09:23 Review of Systems <Jeff Posadas DO - Last Filed: 02/16/21 06:51> Constitutional Constitutional: Denies fever(s) Eyes Eyes: Reports system reviewed and no additional complaints, except as documented ENT Ears, Nose, Mouth, and Throat: Denies lip swelling, Denies throat swelling and Denies tongue swelling Cardiovascular Cardiovascular: Denies chest pain and Reports dyspnea Respiratory Respiratory: Denies cough and Reports dyspnea Gastrointestinal Gastrointestinal: Denies nausea Genitourinary Genitourinary: Reports system reviewed and no additional complaints, except as documented Musculoskeletal Musculoskeletal: Reports system reviewed and no additional complaints, except as documented Integumentary/Breasts Skin/Breast: Denies rash Neurologic Neurologic: Reports system reviewed and no additional complaints, except as documented Psychiatric Psychiatric: Reports system reviewed and no additional complaints, except as documented Hematologic/Lymphatic On Anticoagulants: No Allergic/Immunologic Allergic/Immunologic: Denies urticaria, Denies lip swelling, Denies throat swelling and Denies tongue swelling Patient History <Jeff Posadas DO - Last Filed: 02/16/21 06:51> Medical History CAD (coronary artery disease) Hepatitis C, chronic Hypertension Liver cancer Type 2 diabetes mellitus Family History Mother Myocardial infarction Father Myocardial infarction Sister Pneumonia due to COVID-19 virus Social History household members: family Smoking Status: Never smoker Smoking Status: Never smoker alcohol intake frequency: holidays/special occasions only Substance Use Type: does not use Exam <Jeff Posadas DO - Last Filed: 02/16/21 06:51> Initial Vital Signs Initial Vital Signs: Vital Signs Pulse Rate 105 H 02/15/21 12:58 Respiratory Rate 28 H 02/15/21 12:58 Pulse Oximetry 98 02/15/21 12:58 Const General: cooperative and acute distress [facility] Head: normal to inspection and normocephalic Eyes General: appearance normal, both eyes and all related structures Neck Neck: normal visual inspection Chest Chest: No crepitus and No tenderness Resp Auscultation: clear to auscultation bilaterally Cardio Rate: tachycardic Rhythm: regular rhythm GI Inspection: normal to inspection and non-distended General: bladder normal to palpation Bimanual Exam- Vagina & Uterus: bladder normal to palpation Back/Spine/Pelvis Back: normal to inspection Skin General: no rashes or lesions noted Neuro General: patient alert, patient awake and patient oriented x3 Extrem General: normal to inspection and capillary refill normal Psych Appearance: grossly normal <Rustam Mann, DO - Last Filed: 02/16/21 03:00> Initial Vital Signs Initial Vital Signs: Vital Signs Pulse Rate 105 H 02/15/21 12:58 Respiratory Rate 28 H 02/15/21 12:58 Pulse Oximetry 98 02/15/21 12:58 Course <Jeff Posadas DO - Last Filed: 02/16/21 06:51> Orders Ordered: Discontinued Medications Diphenhydramine HCl (Diphenhydramine 50 Mg/Ml Vial) 25 mg IV NOW ONE Stop: 02/15/21 12:57 Last Admin: 02/15/21 13:02 Dose: 25 mg Documented by: MANJINDER Epinephrine (Racepinephrine 0.5 Ml Neb) 0.5 ml INH NOW ONE Stop: 02/15/21 12:57 Last Admin: 02/15/21 13:07 Dose: Not Given Documented by: JANETH Epinephrine HCl (Epinephrine 1 Mg/Ml) 0.5 mg IM NOW ONE Stop: 02/15/21 13:01 Last Admin: 02/15/21 13:13 Dose: 0.5 mg Documented by: MANJINDER Heparin Sodium (Porcine) (Heparin 5,000 Unit/Ml Vial) 5,800 unit 80 unit/kg (5800 unit) IV NOW ONE Stop: 02/15/21 14:22 Last Admin: 02/15/21 14:30 Dose: 5,800 unit Documented by: RADHA Sodium Chloride (Normal Saline 0.9%) 1,000 mls @ 150 mls/hr IV CONT BIENVENIDO Last Infusion: 02/15/21 21:53 Dose: 0 mls/hr Documented by: Infusion: 02/15/21 14:00 Dose: 100 mls/hr Documented by: Admin: 02/15/21 13:02 Dose: 150 mls/hr Documented by: MANJINDER Heparin Sodium/Dextrose (Heparin Drip) 25,000 unit in 500 mls @ 24 mls/hr IV CONT BIENVENIDO; Protocol Last Titration: 02/15/21 17:26 Dose: 0 units/hr, 0 mls/hr Documented by: Admin: 02/15/21 14:30 Dose: 1,200 units/hr, 24 mls/hr Documented by: RADHA Lorazepam (Lorazepam 2 Mg/Ml Inj) 0.5 mg IV NOW ONE Stop: 02/15/21 13:22 Last Admin: 02/15/21 13:39 Dose: 0.5 mg Documented by: RADHA Methylprednisolone (Methylprednisolone 125 Mg/2 Ml Vial) 125 mg IV NOW ONE Stop: 02/15/21 12:57 Last Admin: 02/15/21 13:02 Dose: 125 mg Documented by: MANJINDER Ondansetron HCl (Ondansetron 4 Mg/2 Ml Inj) 4 mg IV NOW ONE Stop: 02/15/21 13:22 Last Admin: 02/15/21 13:39 Dose: 4 mg Documented by: RADHA Vital Signs Vital signs: Vital Signs - 8 hr 02/15/21 19:00 02/15/21 19:30 02/15/21 20:00 Pulse Rate 93 H 89 89 Respiratory Rate 21 22 24 Blood Pressure 125/86 Pulse Oximetry 97 96 97 02/15/21 20:30 02/15/21 21:00 02/15/21 21:30 Pulse Rate 89 92 H 91 H Respiratory Rate 21 24 18 Blood Pressure 135/88 118/74 Pulse Oximetry 98 97 97 <Rustam Mann DO - Last Filed: 02/16/21 03:00> Course Course Narrative: patient received in sign-out from Dr. Posadas. I performed a brief history and physical. there was extensive discussion between emergency and the patient's provider in [place] and agreement was that a repeat evaluation of hemoglobin will be performed an without any significant findings of blood loss the patient would be discharged with return precautions and encouragement to follow up Orders Ordered: Discontinued Medications Diphenhydramine HCl (Diphenhydramine 50 Mg/Ml Vial) 25 mg IV NOW ONE Stop: 02/15/21 12:57 Last Admin: 02/15/21 13:02 Dose: 25 mg Documented by: MANJINDER Epinephrine (Racepinephrine 0.5 Ml Neb) 0.5 ml INH NOW ONE Stop: 02/15/21 12:57 Last Admin: 02/15/21 13:07 Dose: Not Given Documented by: JANETH Epinephrine HCl (Epinephrine 1 Mg/Ml) 0.5 mg IM NOW ONE Stop: 02/15/21 13:01 Last Admin: 02/15/21 13:13 Dose: 0.5 mg Documented by: MANJINDER Heparin Sodium (Porcine) (Heparin 5,000 Unit/Ml Vial) 5,800 unit 80 unit/kg (5800 unit) IV NOW ONE Stop: 02/15/21 14:22 Last Admin: 02/15/21 14:30 Dose: 5,800 unit Documented by: RADHA Sodium Chloride (Normal Saline 0.9%) 1,000 mls @ 150 mls/hr IV CONT BIENVENIDO Last Infusion: 02/15/21 21:53 Dose: 0 mls/hr Documented by: Infusion: 02/15/21 14:00 Dose: 100 mls/hr Documented by: Admin: 02/15/21 13:02 Dose: 150 mls/hr Documented by: MANJINDER Heparin Sodium/Dextrose (Heparin Drip) 25,000 unit in 500 mls @ 24 mls/hr IV CONT BIENVENIDO; Protocol Last Titration: 02/15/21 17:26 Dose: 0 units/hr, 0 mls/hr Documented by: Admin: 02/15/21 14:30 Dose: 1,200 units/hr, 24 mls/hr Documented by: RADHA Lorazepam (Lorazepam 2 Mg/Ml Inj) 0.5 mg IV NOW ONE Stop: 02/15/21 13:22 Last Admin: 02/15/21 13:39 Dose: 0.5 mg Documented by: RADHA Methylprednisolone (Methylprednisolone 125 Mg/2 Ml Vial) 125 mg IV NOW ONE Stop: 02/15/21 12:57 Last Admin: 02/15/21 13:02 Dose: 125 mg Documented by: MANJINDER Ondansetron HCl (Ondansetron 4 Mg/2 Ml Inj) 4 mg IV NOW ONE Stop: 02/15/21 13:22 Last Admin: 02/15/21 13:39 Dose: 4 mg Documented by: RADHA Vital Signs Vital signs: Vital Signs - 8 hr 02/15/21 19:00 02/15/21 19:30 02/15/21 20:00 Pulse Rate 93 H 89 89 Respiratory Rate 21 22 24 Blood Pressure 125/86 Pulse Oximetry 97 96 97 02/15/21 20:30 02/15/21 21:00 02/15/21 21:30 Pulse Rate 89 92 H 91 H Respiratory Rate 21 24 18 Blood Pressure 135/88 118/74 Pulse Oximetry 98 97 97 Medical Decision Making <Jeff Posadas DO - Last Filed: 02/16/21 06:51> Medical Records Medical records reviewed: Yes I reviewed the patient's medical records. Lab Data Lab results reviewed: Yes I reviewed the patient's lab results. Result diagrams: 02/15/21 20:30 02/15/21 13:00 Labs: Lab Results 02/15/21 02/15/21 02/15/21 Range/Units 13:00 13:00 13:00 WBC 7.3 (4.5-11.0) X10^3/uL RBC 4.01 (4.0-5.2) X10^6/uL Hgb 11.5 L (12.0-16.0) g/dL Hct 35.4 L (36-46) % MCV 88.2 (80-100) fL MCH 28.6 (26-34) PG MCHC 32.4 (30-36) % RDW 15.1 H (11.6-14.8) % Plt Count 86 L (150-400) X10^3/uL Neut % (Auto) 80.7 H (50-75) % Lymph % (Auto) 9.5 L (25-40) % [place] % (Auto) 7.0 (3-14) % Eos % (Auto) 1.8 L (2-4) % Baso % (Auto) 1.0 (0-2) % Neut # (Auto) 5900 (1883-7541) /uL Lymph # (Auto) 700 L (6086-4129) /uL [place] # (Auto) 500 (0-900) /uL Eos # (Auto) 100 (0-450) /uL Baso # (Auto) 100 (0-100) /uL PT (10.1-12.7) SECONDS INR (0.9-1.3) APTT (26.4-36.2) SECONDS Sodium 138 (137-145) mmol/L Potassium 3.5 (3.4-5.1) mmol/L Chloride 112 H (98-107) mmol/L Carbon Dioxide 19 L (22-32) mmol/L BUN 10 (7-17) mg/dL Creatinine 0.79 (0.52-1.04) mg/dL Estimated GFR > 60.0 (>60) mL/min BUN/Creatinine Ratio 12.7 (6-22) Glucose 148 H (80-110) mg/dL Lactate (0.7-2.1) mmol/L Calcium 8.9 (8.4-10.2) mg/dL Total Bilirubin 0.8 (0.2-1.3) mg/dL AST 72 H (14-36) IU/L ALT 24 (<35) IU/L Alkaline Phosphatase 202 H (38-126) U/L Total Creatine Kinase 55 (30-135) U/L CK-MB (CK-2) TNP CK-MB (CK-2) Rel Index TNP Troponin I < 0.012 (0.01-0.034) ng/mL Total Protein 6.2 L (6.3-8.2) g/dL Albumin 3.2 L (3.5-5.0) g/dL Globulin 3.0 (1.7-4.1) g/dL Albumin/Globulin Ratio 1.1 (1.0-2.8) SARS-CoV-2 (PCR) Negative (Negative) 02/15/21 02/15/21 02/15/21 Range/Units 13:00 14:00 17:27 WBC (4.5-11.0) X10^3/uL RBC (4.0-5.2) X10^6/uL Hgb (12.0-16.0) g/dL Hct (36-46) % MCV (80-100) fL MCH (26-34) PG MCHC (30-36) % RDW (11.6-14.8) % Plt Count (150-400) X10^3/uL Neut % (Auto) (50-75) % Lymph % (Auto) (25-40) % [place] % (Auto) (3-14) % Eos % (Auto) (2-4) % Baso % (Auto) (0-2) % Neut # (Auto) (2742-1286) /uL Lymph # (Auto) (8728-5044) /uL [place] # (Auto) (0-900) /uL Eos # (Auto) (0-450) /uL Baso # (Auto) (0-100) /uL PT 14.2 H (10.1-12.7) SECONDS INR 1.3 (0.9-1.3) APTT 33 D TNP (26.4-36.2) SECONDS Sodium (137-145) mmol/L Potassium (3.4-5.1) mmol/L Chloride (98-107) mmol/L Carbon Dioxide (22-32) mmol/L BUN (7-17) mg/dL Creatinine (0.52-1.04) mg/dL Estimated GFR (>60) mL/min BUN/Creatinine Ratio (6-22) Glucose (80-110) mg/dL Lactate 2.0 (0.7-2.1) mmol/L Calcium (8.4-10.2) mg/dL Total Bilirubin (0.2-1.3) mg/dL AST (14-36) IU/L ALT (<35) IU/L Alkaline Phosphatase (38-126) U/L Total Creatine Kinase (30-135) U/L CK-MB (CK-2) CK-MB (CK-2) Rel Index Troponin I (0.01-0.034) ng/mL Total Protein (6.3-8.2) g/dL Albumin (3.5-5.0) g/dL Globulin (1.7-4.1) g/dL Albumin/Globulin Ratio (1.0-2.8) SARS-CoV-2 (PCR) (Negative) 02/15/21 02/15/21 02/15/21 Range/Units 17:27 20:30 20:30 WBC (4.5-11.0) X10^3/uL RBC (4.0-5.2) X10^6/uL Hgb 11.3 L 11.1 L (12.0-16.0) g/dL Hct 35.8 L 34.3 L (36-46) % MCV (80-100) fL MCH (26-34) PG MCHC (30-36) % RDW (11.6-14.8) % Plt Count (150-400) X10^3/uL Neut % (Auto) (50-75) % Lymph % (Auto) (25-40) % [place] % (Auto) (3-14) % Eos % (Auto) (2-4) % Baso % (Auto) (0-2) % Neut # (Auto) (9574-3050) /uL Lymph # (Auto) (1111-4553) /uL [place] # (Auto) (0-900) /uL Eos # (Auto) (0-450) /uL Baso # (Auto) (0-100) /uL PT (10.1-12.7) SECONDS INR (0.9-1.3) APTT 50 H D (26.4-36.2) SECONDS Sodium (137-145) mmol/L Potassium (3.4-5.1) mmol/L Chloride (98-107) mmol/L Carbon Dioxide (22-32) mmol/L BUN (7-17) mg/dL Creatinine (0.52-1.04) mg/dL Estimated GFR (>60) mL/min BUN/Creatinine Ratio (6-22) Glucose (80-110) mg/dL Lactate (0.7-2.1) mmol/L Calcium (8.4-10.2) mg/dL Total Bilirubin (0.2-1.3) mg/dL AST (14-36) IU/L ALT (<35) IU/L Alkaline Phosphatase (38-126) U/L Total Creatine Kinase (30-135) U/L CK-MB (CK-2) CK-MB (CK-2) Rel Index Troponin I (0.01-0.034) ng/mL Total Protein (6.3-8.2) g/dL Albumin (3.5-5.0) g/dL Globulin (1.7-4.1) g/dL Albumin/Globulin Ratio (1.0-2.8) SARS-CoV-2 (PCR) (Negative) Imaging Data Chest x-ray: Radiologist's Impression: [address] [id number] ReportSigned Patient: Sandra Kirby Kaye#: [id number]: 5Acct:[id number]/Sex: 65 / FDate of Service: 02/15/21Loc: EDAccession Number: [id number] Procedure: XR chest 1V Ordering Provider: Jeff Posadas D.O. PROCEDURE: XR CHEST 1V INDICATIONS: shortness of breath TECHNIQUE: One view of the chest was acquired. COMPARISON: [facility], CR, XR CHEST 1V, 03/16/2020, 9:25. FINDINGS: Surgical changes and devices: Surgical clips in the upper abdomen are stable.. Lungs and pleura: Lungs are clear. No pleural effusions or pneumothorax. Mediastinum: Mediastinal contours appear normal. Heart size is normal. Bones and chest wall: No suspicious bony lesions. Overlying soft tissues appear unremarkable. IMPRESSION: No acute cardiopulmonary disease process. Dictated by: Aurora Mckeon MD, PhD on 02/15/2021 at 13:18 Approved by: Aurora Mckeon MD, PhD on 02/15/2021 at 13:18 CT scan - abdomen/pelvis: Radiologist's Impression: [address] [id number] Scan ReportSigned [facility] [id number]: 5Acct:[id number]/Sex: 65 / FDate of Service: 02/15/21Loc: CTAccession Number: [id number] Procedure: CT chest abd pel w con Ordering Provider: Stacey Zhang MD PROCEDURE: CT CHEST ABD PEL W CON INDICATIONS: Liver cell carcinoma TECHNIQUE: After the administration of oral and intravenous contrast, axial sections acquired from the supraclavicular neck to the pubic symphysis. Coronal and sagittal reformats were performed. For radiation dose reduction, the following was used: automated exposure control, adjustment of mA and/or kV according to patient size. COMPARISON: [facility], CT, CT ANGIO CHEST PE PROTOCOL, 03/16/2020, 11:43. [facility], US, US ABDOMEN COMPLETE, 09/13/2020, 10:38. FINDINGS: Image quality: Excellent. CHEST: Lower Neck: No enlarged lymph nodes. Thyroid: Within normal limits. Axillae: No enlarged lymph nodes. Chest Wall: Unremarkable. Lungs and Airways: No consolidation or suspicious nodules. Pleura: No pneumothorax or pleural effusions. Heart: Heart size is normal. No pericardial effusion. Extensive coronary artery calcifications Thoracic Vessels: The aorta and pulmonary arteries demonstrate normal size. Mediastinum and Wendy: No enlarged lymph nodes. Esophagus: No wall thickening. No hiatal hernia. ABDOMEN: Liver: Surface nodularity is consistent with cirrhosis. There is extensive infiltration of the right lobe of the liver with low-density mass. There is associated thrombus in the right portal vein and main portal vein, which appears to potentially be enhancing, suggesting tumor thrombus. Clot extends to the origin of the portal vein as the splenic vein and superior mesenteric vein join together.. The left lobe of the liver also has low-density mass within it, predominantly in the medial segment of the left lobe. Gallbladder: Surgically absent Biliary ducts: Unremarkable. Pancreas: Unremarkable. Spleen: There is a peripheral wedge like splenic infarction, possibly acute or subacute. Spleen is normal in size. Adrenal Glands: Unremarkable. Kidneys and Ureters: Unremarkable. Stomach and Bowel: Marked thickening of the wall of the cecum and right colon, nonspecific in the setting of hepatocellular disease. Peritoneum: With there is mild abdominal ascites and moderate pelvic ascites. Ventral Wall: No hernia. Abdominal Nodes: No retroperitoneal or mesenteric adenopathy by size criteria. Vessels: Aorta and inferior vena cava are normal in size. Extensive vascular calcifications including extensive SMA calcifications and suspicion of significant SMA stenotic disease or possibly even occlusive disease. Jaquan it Probable tumor thrombus fills the main portal vein and right portal vein. There are large left abdominal varicosities. PELVIS: Pelvic Organs: Uterus is surgically absent. Bladder: Unremarkable. Pelvic Nodes: No enlarged lymph nodes. Miscellaneous: No inguinal hernias are seen. Bones: Unremarkable. IMPRESSION: 1. No evidence of acute pulmonary process. No evidence of malignancy in the chest. 2. Severe coronary artery atherosclerotic calcifications. 3. Extensive tumor infiltration of the liver, highly suspicious for diffuse hepatoma. 3. Extensive associated portal vein thrombus, involving the entirety of the main portal vein and right portal vein with possible peripheral enhancement suggesting tumor thrombus. 4. Small, possibly acute splenic infarct. 5. 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 6. Marked thickening of the cecum and ascending colon is nonspecific in the setting of hepatocellular dysfunction. However, in this patient with significant SMA distribution atherosclerosis, cannot exclude acute bowel ischemia. 7. Mild abdominal ascites and moderate pelvic ascites. 8. Abdominal varicosities. Dictated by: Doe Araya M.D. on 02/15/2021 at 13:06 Approved by: Doe Araya M.D. on 02/15/2021 at 13:20 ECG Data Attestation: I personally reviewed and interpreted this ECG as follows: Interpretation: Sinus tachycardia Ventricular rate 103 [place] Normal QRS Normal QTC No ST T wave changes Repeat EKG Sinus rhythm Ventricular rate 129 Normal QRS Normal QTC Relatively unchanged from previous EKG MDM Narrative Medical decision making narrative: The CT scan included in this note is for reference purposes only. It was ordered by an outside provider in done prior to this ED visit. She was brought to the emergency department after having the CT scan performed for concern of an anaphylactic reaction. She was not having chest pain. Most her symptoms were respiratory. No vomiting. No rashes. No tongue swelling. Given the clinical presentation she was treated with Benadryl and steroids and epinephrine. She is afebrile. Chest x-ray is unremarkable. Labs are unremarkable. EKG is unremarkable. The Ativan seemed to be the most effective at helping her symptoms and I feel that her presenting symptoms were most likely an anxiety related issue. I did review the CT scan results. Does show multiple issues to include tumors on her liver which the patient knows about but also findings of hepatic vein thrombosis and also issues with the superior mesenteric artery and also the bowel issues. I initially discussed the case with vascular surgery at [facility] who recommended starting the patient on heparin and contacting her provider at the [facility]. I then discussed the case with Dr. Santiago who was the provider who ordered the CT scan. He was able to review the CT and stated that these were most likely tumor related thrombus and recommended stopping the heparin and not sending her home on anticoagulation. He stated that if her vital signs were stable and her H&H was stable that there is no emergent issue and she could follow up as an outpatient. If her H&H started to decrease than she potentially would need IR/embolization. Unfortunately I do not feel the patient should be admitted to this facility. If she were to deteriorate she would need to be transferred as we do not have IR/embolization capability. I also do not feel that she needs emergently transferred to the [facility] because if she remains stable as which she currently is she would just be discharged home. The plan will be is to keep her here in the emergency department. Repeat her H/H. We will stop the heparin. If she remains stable will discharge home if she deteriorates we will transfer. Transfer Center and Dr. Santiago agree with this plan. Care turned over to Dr. Mann to follow-up. I also discussed the case with the family and they expressed understanding and agreement. <Rustam Mann, DO - Last Filed: 02/16/21 03:00> Lab Data Labs: Lab Results 02/15/21 02/15/21 02/15/21 Range/Units 13:00 13:00 13:00 WBC 7.3 (4.5-11.0) X10^3/uL RBC 4.01 (4.0-5.2) X10^6/uL Hgb 11.5 L (12.0-16.0) g/dL Hct 35.4 L (36-46) % MCV 88.2 (80-100) fL MCH 28.6 (26-34) PG MCHC 32.4 (30-36) % RDW 15.1 H (11.6-14.8) % Plt Count 86 L (150-400) X10^3/uL Neut % (Auto) 80.7 H (50-75) % Lymph % (Auto) 9.5 L (25-40) % [place] % (Auto) 7.0 (3-14) % Eos % (Auto) 1.8 L (2-4) % Baso % (Auto) 1.0 (0-2) % Neut # (Auto) 5900 (6517-8840) /uL Lymph # (Auto) 700 L (8256-2216) /uL [place] # (Auto) 500 (0-900) /uL Eos # (Auto) 100 (0-450) /uL Baso # (Auto) 100 (0-100) /uL PT (10.1-12.7) SECONDS INR (0.9-1.3) APTT (26.4-36.2) SECONDS Sodium 138 (137-145) mmol/L Potassium 3.5 (3.4-5.1) mmol/L Chloride 112 H (98-107) mmol/L Carbon Dioxide 19 L (22-32) mmol/L BUN 10 (7-17) mg/dL Creatinine 0.79 (0.52-1.04) mg/dL Estimated GFR > 60.0 (>60) mL/min BUN/Creatinine Ratio 12.7 (6-22) Glucose 148 H (80-110) mg/dL Lactate (0.7-2.1) mmol/L Calcium 8.9 (8.4-10.2) mg/dL Total Bilirubin 0.8 (0.2-1.3) mg/dL AST 72 H (14-36) IU/L ALT 24 (<35) IU/L Alkaline Phosphatase 202 H (38-126) U/L Total Creatine Kinase 55 (30-135) U/L CK-MB (CK-2) TNP CK-MB (CK-2) Rel Index TNP Troponin I < 0.012 (0.01-0.034) ng/mL Total Protein 6.2 L (6.3-8.2) g/dL Albumin 3.2 L (3.5-5.0) g/dL Globulin 3.0 (1.7-4.1) g/dL Albumin/Globulin Ratio 1.1 (1.0-2.8) SARS-CoV-2 (PCR) Negative (Negative) 02/15/21 02/15/21 02/15/21 Range/Units 13:00 14:00 17:27 WBC (4.5-11.0) X10^3/uL RBC (4.0-5.2) X10^6/uL Hgb (12.0-16.0) g/dL Hct (36-46) % MCV (80-100) fL MCH (26-34) PG MCHC (30-36) % RDW (11.6-14.8) % Plt Count (150-400) X10^3/uL Neut % (Auto) (50-75) % Lymph % (Auto) (25-40) % [place] % (Auto) (3-14) % Eos % (Auto) (2-4) % Baso % (Auto) (0-2) % Neut # (Auto) (1097-3505) /uL Lymph # (Auto) (3173-7883) /uL [place] # (Auto) (0-900) /uL Eos # (Auto) (0-450) /uL Baso # (Auto) (0-100) /uL PT 14.2 H (10.1-12.7) SECONDS INR 1.3 (0.9-1.3) APTT 33 D TNP (26.4-36.2) SECONDS Sodium (137-145) mmol/L Potassium (3.4-5.1) mmol/L Chloride (98-107) mmol/L Carbon Dioxide (22-32) mmol/L BUN (7-17) mg/dL Creatinine (0.52-1.04) mg/dL Estimated GFR (>60) mL/min BUN/Creatinine Ratio (6-22) Glucose (80-110) mg/dL Lactate 2.0 (0.7-2.1) mmol/L Calcium (8.4-10.2) mg/dL Total Bilirubin (0.2-1.3) mg/dL AST (14-36) IU/L ALT (<35) IU/L Alkaline Phosphatase (38-126) U/L Total Creatine Kinase (30-135) U/L CK-MB (CK-2) CK-MB (CK-2) Rel Index Troponin I (0.01-0.034) ng/mL Total Protein (6.3-8.2) g/dL Albumin (3.5-5.0) g/dL Globulin (1.7-4.1) g/dL Albumin/Globulin Ratio (1.0-2.8) SARS-CoV-2 (PCR) (Negative) 02/15/21 02/15/21 02/15/21 Range/Units 17:27 20:30 20:30 WBC (4.5-11.0) X10^3/uL RBC (4.0-5.2) X10^6/uL Hgb 11.3 L 11.1 L (12.0-16.0) g/dL Hct 35.8 L 34.3 L (36-46) % MCV (80-100) fL MCH (26-34) PG MCHC (30-36) % RDW (11.6-14.8) % Plt Count (150-400) X10^3/uL Neut % (Auto) (50-75) % Lymph % (Auto) (25-40) % [place] % (Auto) (3-14) % Eos % (Auto) (2-4) % Baso % (Auto) (0-2) % Neut # (Auto) (8868-2099) /uL Lymph # (Auto) (4732-8135) /uL [place] # (Auto) (0-900) /uL Eos # (Auto) (0-450) /uL Baso # (Auto) (0-100) /uL PT (10.1-12.7) SECONDS INR (0.9-1.3) APTT 50 H D (26.4-36.2) SECONDS Sodium (137-145) mmol/L Potassium (3.4-5.1) mmol/L Chloride (98-107) mmol/L Carbon Dioxide (22-32) mmol/L BUN (7-17) mg/dL Creatinine (0.52-1.04) mg/dL Estimated GFR (>60) mL/min BUN/Creatinine Ratio (6-22) Glucose (80-110) mg/dL Lactate (0.7-2.1) mmol/L Calcium (8.4-10.2) mg/dL Total Bilirubin (0.2-1.3) mg/dL AST (14-36) IU/L ALT (<35) IU/L Alkaline Phosphatase (38-126) U/L Total Creatine Kinase (30-135) U/L CK-MB (CK-2) CK-MB (CK-2) Rel Index Troponin I (0.01-0.034) ng/mL Total Protein (6.3-8.2) g/dL Albumin (3.5-5.0) g/dL Globulin (1.7-4.1) g/dL Albumin/Globulin Ratio (1.0-2.8) SARS-CoV-2 (PCR) (Negative) Discharge Plan Departure Patient Disposition: Home Clinical Impression: Allergic reaction Qualifiers: Encounter type: initial encounter Qualified Code(s): T78.40XA - Allergy, unspecified, initial encounter Instructions: DI for Shortness of Breath Activity Restrictions/Additional Instructions: *You have been diagnosed with [shortness of breath, likely due to allergic reaction from contrast from CT. Your blood counts have been monitored over many hours and are stable. Per discussion between Dr. Posadas and Dr. Santiago he will be discharged and can follow up closely with your doctors] *What to do: *Please continue to take your regular medications as directed. [ ] New medication prescriptions sent to your pharmacy: [ ] [ ] New medication written as a paper prescription [x ] No new medications given *Please follow up with your primary care provider in 2-3 days, call for an appointment. Let them know you were seen in the Emergency Department and that we ask that you be seen in follow up. We will electronically transmit a record of today's note if your PCP is in our system *If you do not have a primary care provider please contact the [facility] Resource line at [phone]. They will ask some questions about your medical history and help get you set up with a doctor in the community. *Return to Emergency Department if you should have any new, worsening or concerning symptoms, such as [fever greater than 101 F, shaking chills, worsening pain, persistent vomiting or other bothersome symptoms] Prescriptions: No Action isosorbide mononitrate 30 MG tablet extended release 24 hr 30 mg PO Q DAY Qty: 0 RF: 0 enalapril maleate 20 MG tablet 20 mg PO BID Qty: 0 RF: 0 metoprolol tartrate 50 MG tablet 50 mg PO BID Qty: 0 RF: 0 aspirin 81 MG tablet,chewable 81 mg PO QDAY Qty: 0 RF: 0 levothyroxine [Synthroid] 75 MCG tablet 0.075 mg PO QDAY Qty: 0 RF: 0 amlodipine 5 mg tablet 5 mg PO DAILY RF: 0 atorvastatin 10 mg tablet 10 mg PO DAILY RF: 0 metformin 850 mg tablet 850 mg PO DAILY RF: 0 glipizide 2.5 mg tablet extended release 24hr 2.5 mg PO DAILY RF: 0 furosemide 20 mg tablet 20 mg PO BID RF: 0 metoprolol succinate 25 mg tablet extended release 24 hr 25 mg PO DAILY RF: 0 lisinopril 40 mg tablet 40 mg PO DAILY RF: 0 levofloxacin 750 mg tablet 750 mg PO DAILY Qty: 1 RF: 0 Referrals: Stacey Zhang MD [Primary Care Provider] -
[2021-02-15] MEDS: diphenhydrAMINE 50 MG/ML VIAL 25 MG IV (13:02)
[2021-02-15] MEDS: methylPREDNISolone 125 MG/2 ML VIAL IV (13:02)
[2021-02-15] MEDS: SODIUM CHLORIDE 0.9% 1,000 ML 150 ML IV (13:02)
[2021-02-15 13:09] LABS: Add Manual Diff / Slide Review NO; Basophils Absolute Auto 100 /uL (0-100); Eosinophils Absolute Auto 100 /uL (0-450); Eosinophils Percent Auto 1.8 % (2-4); Hematocrit 35.4 % (36-46); Hemoglobin 11.5 g/dL (12.0-16.0); Lymphocytes Absolute Auto 700 /uL (1100-4500); Lymphocytes Percent Auto 9.5 % (25-40); Mean Corpuscular HGB Conc 32.4 % (30-36); Mean Corpuscular Hemoglobin 28.6 PG (26-34); Mean Corpuscular Volume 88.2 fL (80-100); Monocytes Absolute Auto 500 /uL (0-900); Neutrophils Absolute Auto 5900 /uL (1500-7000); Neutrophils Percent Auto 80.7 % (50-75); Platelet Count 86 X10^3/uL (150-400); Red Blood Cell Count 4.01 X10^6/uL (4.0-5.2); Red Cell Distribution Width 15.1 % (11.6-14.8); White Blood Cell Count 7.3 X10^3/uL (4.5-11.0)
[2021-02-15] MEDS: EPINEPHrine 1 MG/ML 0.5 MG IM (13:13)
[2021-02-15 13:20] LABS: Alanine Aminotransferase 24 IU/L (<35); Albumin 3.2 g/dL (3.5-5.0); Albumin Globulin Ratio 1.1 (1.0-2.8); Alkaline Phosphatase 202 U/L (38-126); Aspartate Aminotransferase 72 IU/L (14-36); BUN Creatinine Ratio 12.7 (6-22); Bilirubin Total 0.8 mg/dL (0.2-1.3); Blood Urea Nitrogen 10 mg/dL (7-17); Calcium 8.9 mg/dL (8.4-10.2); Carbon Dioxide 19 mmol/L (22-32); Chloride 112 mmol/L (98-107); Creatine Kinase 55 U/L (30-135); Estimated Glomerular Filt Rate > 60.0 mL/min (>60); Glucose 148 mg/dL (80-110); HEMOLYSIS < 15 (0-50); Potassium 3.5 mmol/L (3.4-5.1); Sodium 138 mmol/L (137-145); Total Protein 6.2 g/dL (6.3-8.2)
[2021-02-15 13:32] LABS: COVID19 -Nasal RAPID Negative (Negative); Troponin I < 0.012 ng/mL (0.01-0.034)
[2021-02-15] MEDS: ONDANSETRON 4 MG/2 ML INJ IV (13:39)
[2021-02-15] MEDS: LORazepam 2 MG/ML INJ 0.5 MG IV (13:39)
[2021-02-15 14:14] LABS: INR 1.3 (0.9-1.3); Prothrombin Time 14.2 SECONDS (10.1-12.7)
[2021-02-15 14:17] LABS: PTT Partial Thromboplastin Tim 33 SECONDS (26.4-36.2)
[2021-02-15] MEDS: HEPARIN DRIP 25,000 UNIT/500 ML IV.SOLN 24 UNIT IV (14:30)
[2021-02-15] MEDS: HEPARIN 5,000 UNIT/ML VIAL 5800 UNIT IV (14:30)
[2021-02-15 17:35] LABS: Hematocrit 35.8 % (36-46); Hemoglobin 11.3 g/dL (12.0-16.0)
--- NOTE | 2021-02-15 18:21 | PC.NURSE ---
1726: Heparin drip was stopped per MD verbal order. 1815: PTT >150 as reported by lab that machine cuts off at that point. MD notified of lab value.
[2021-02-15 20:50] LABS: PTT Partial Thromboplastin Tim 50 SECONDS (26.4-36.2)
[2021-02-15 20:55] LABS: Hematocrit 34.3 % (36-46); Hemoglobin 11.1 g/dL (12.0-16.0)
== END 2021-02-15 22:10 | disposition home or self-care (01) ==
PROVIDERS: Emergency Medicine; Emergency Provider Emergency Medicine; Family Provider Physician Assistant; PCP Family Medicine
DX: R06.02 Shortness of breath (principal); T50.8X5A Adverse effect of diagnostic agents, initial encounter; T78.40XA Allergy, unspecified, initial encounter; Z20.822 Contact with and (suspected) exposure to COVID-19; C22.0 Liver cell carcinoma; I25.10 Atherosclerotic heart disease of native coronary artery without angina pectoris; R18.8 Other ascites
CPT/HCPCS: 36415; 71045; 71260; 74177; 80053; 82550; 83605; 84484; 85014; 85018; 85025; 85610; 85730; 87635; 93005; 93010; 96361; 96365; 96366; 96375; 99284; C9803; J0171; J1200; J1644; J2060; J2405; J2930; Q9967

== ENCOUNTER 2021-05-05 14:07 | Emergency (ER) | payer MEDICARE, MEDICAID, SELFPAY ==
[2020-03-16 12:45] VITALS: BMI 32.1
[2021-05-05] VITALS (12 sets, daily range): BP systolic 149–188; BP diastolic 68–113; PULSE 60–83; RESP 13–31; TEMP 36.3; O2SAT 97–100; BMI 30.4
--- NOTE | 2021-05-05 14:13 | DI.RAD.S_ITS ---
PROCEDURE: XR CHEST 1V INDICATIONS: chest pain TECHNIQUE: One view of the chest was acquired. COMPARISON: [facility], CR, XR CHEST 1V, 02/15/2021, 13:00. FINDINGS: Surgical changes and devices: None. Lungs and pleura: Lungs are clear. No pleural effusions or pneumothorax. Mediastinum: Mediastinal contours appear normal. Heart size is minimally prominent. Bones and chest wall: No suspicious bony lesions. Overlying soft tissues appear unremarkable. IMPRESSION: No acute pulmonary process. Dictated by: Gail Dunn M.D. on 05/05/2021 at 15:18 Approved by: Gail Dunn M.D. on 05/05/2021 at 15:18
[2021-05-05 14:25] LABS: Add Manual Diff / Slide Review NO; Basophils Absolute Auto 100 /uL (0-100); Eosinophils Absolute Auto 100 /uL (0-450); Eosinophils Percent Auto 2.3 % (2-4); Hemoglobin 10.4 g/dL (12.0-16.0); Lymphocytes Absolute Auto 500 /uL (1100-4500); Mean Corpuscular HGB Conc 31.5 % (30-36); Mean Corpuscular Hemoglobin 26.2 PG (26-34); Mean Corpuscular Volume 83.1 fL (80-100); Monocytes Absolute Auto 400 /uL (0-900); Monocytes Percent Auto 6.4 % (3-14); Neutrophils Absolute Auto 4900 /uL (1500-7000); Neutrophils Percent Auto 82.3 % (50-75); Platelet Count 76 X10^3/uL (150-400); Red Blood Cell Count 3.97 X10^6/uL (4.0-5.2); Red Cell Distribution Width 15.9 % (11.6-14.8); White Blood Cell Count 5.9 X10^3/uL (4.5-11.0)
[2021-05-05 14:37] LABS: Alanine Aminotransferase 31 IU/L (<35); Albumin 3.3 g/dL (3.5-5.0); Albumin Globulin Ratio 1.1 (1.0-2.8); Alkaline Phosphatase 193 U/L (38-126); Aspartate Aminotransferase 56 IU/L (14-36); BUN Creatinine Ratio 19.7 (6-22); Bilirubin Total 0.8 mg/dL (0.2-1.3); Blood Urea Nitrogen 14 mg/dL (7-17); Calcium 8.3 mg/dL (8.4-10.2); Carbon Dioxide 21 mmol/L (22-32); Chloride 111 mmol/L (98-107); Creatine Kinase 55 U/L (30-135); Estimated Glomerular Filt Rate > 60.0 mL/min (>60); Glucose 100 mg/dL (80-110); HEMOLYSIS < 15 (0-50); Lipase 252 U/L (23-300); Potassium 4.1 mmol/L (3.4-5.1); Sodium 138 mmol/L (137-145); Total Protein 6.3 g/dL (6.3-8.2)
[2021-05-05 14:49] LABS: Troponin I < 0.012 ng/mL (0.01-0.034)
--- NOTE | 2021-05-05 15:06 | DI.RAD.S_ITS ---
PROCEDURE: XR ABDOMEN MIN 2V INDICATIONS: rectal pain TECHNIQUE: 2 views of the abdomen were acquired. COMPARISON: None. FINDINGS: Surgical changes and devices: None. Bowel: No pneumoperitoneum. The bowel gas pattern is normal. Soft tissues: No masses; visualized solid organ contours appear normal in size. No suspicious abdominal calcifications. Bones: No suspicious bony abnormalities. IMPRESSION: Unremarkable exam. Dictated by: Gail Dunn M.D. on 05/05/2021 at 15:29 Approved by: Gail Dunn M.D. on 05/05/2021 at 15:31
--- NOTE | 2021-05-05 15:06 | ED.CHESTPAIN ---
HPI - Chest Pain General Chief Complaint: Chest Pain Stated Complaint: Consipated, heart hurts. Oncologist wants her seen Time Seen by Provider: 05/05/21 14:41 Source: patient Mode of arrival: Ambulatory Limitations: no limitations History of Present Illness HPI narrative: Patient is a 65-year-old female history of hepatitis C hepatocellular carcinoma, cardiac disease with stent presenting today with rectal pain ongoing for last 2 days. She feels as though she is constipated. She has been taking MiraLax without any relief. She says every time she strains have a bowel movement her chest hurts. She has had some chest discomfort off and on but currently her rectum is what is hurting the most. No nausea or vomiting. No fevers or chills. She has no increased shortness of breath. Related Data Home Medications Medication Instructions Recorded Confirmed aspirin 81 mg chewable tablet 81 mg PO QDAY #0 07/18/12 03/16/20 enalapril maleate 20 mg tablet 20 mg PO BID #0 07/18/12 03/16/20 isosorbide mononitrate 30 mg 30 mg PO Q DAY #0 07/18/12 03/16/20 tablet,extended release 24 hr levothyroxine 75 mcg tablet 0.075 mg PO QDAY #0 07/18/12 03/16/20 (Synthroid) metoprolol tartrate 50 mg tablet 50 mg PO BID #0 07/18/12 03/16/20 amlodipine 5 mg tablet 5 mg PO DAILY 03/16/20 03/16/20 atorvastatin 10 mg tablet 10 mg PO DAILY 03/16/20 03/16/20 furosemide 20 mg tablet 20 mg PO BID 03/16/20 03/16/20 glipizide 2.5 mg tablet, extended 2.5 mg PO DAILY 03/16/20 03/16/20 release 24 hr lisinopril 40 mg tablet 40 mg PO DAILY 03/16/20 03/16/20 metformin 850 mg tablet 850 mg PO DAILY 03/16/20 03/16/20 metoprolol succinate 25 mg 25 mg PO DAILY 03/16/20 03/16/20 tablet,extended release 24 hr Previous Rx's Medication Instructions Recorded levofloxacin 750 mg tablet 750 mg PO DAILY #1 tab 03/20/20 Allergies Allergy/AdvReac Type Severity Reaction Status Date / Time Penicillins [PENICILLINS] Allergy Severe HIVES, SOB Verified 05/05/21 14:10 iodine Allergy Verified 05/05/21 14:10 hydrocodone [HYDROCODONE] AdvReac Mild ITCHING Verified 05/05/21 14:10 Review of Systems Review of Systems Narrative: GENERAL: Denies chills, fatigue, malaise, fever, sweats, travel HEENT: Denies sinus pain, ear pain, sore throat, difficulty swallowing, neck pain RESPIRATORY: Denies dyspnea, cough, wheezing, hemoptysis, sputum. CARDIOVASCULAR: See HPI GASTROINTESTINAL: see rectal pain : Denies dysuria, frequency, incontinence, hematuria, urinary retention, flank pain. MUSCULOSKELETAL: Denies weakness, joint pain, or bony pain SKIN: No rash, no erythema, no pruritus NEUROLOGIC: Denies weakness, dizziness, headache, numbness, change in speech, confusion PSYCHIATRIC: No concerning psychosocial issues. 12 point review of systems is negative except for those stated above and HPI Patient History Medical History CAD (coronary artery disease) Hepatitis C, chronic Hypertension Liver cancer Type 2 diabetes mellitus Family History Mother Myocardial infarction Father Myocardial infarction Sister Pneumonia due to COVID-19 virus Social History household members: family Smoking Status: Never smoker Smoking Status: Never smoker alcohol intake frequency: holidays/special occasions only Substance Use Type: does not use Exam Initial Vital Signs Initial Vital Signs: Vital Signs Temperature 97.4 F L 05/05/21 14:10 Pulse Rate 75 05/05/21 14:10 Respiratory Rate 15 05/05/21 14:10 Blood Pressure 188/90 H 05/05/21 14:10 Pulse Oximetry 100 05/05/21 14:10 GENERAL: Alert well-appearing 65-year-old femaleand in no acute distress. HEENT: Head atraumatic,EOMI, pupils reactive, face symmetric, moist mucous membranes CARDIOVASCULAR: Regular rate and rhythm without murmurs, rubs or gallops. RESPIRATORY: Breath sounds equal bilaterally, no wheezes rales or rhonchi. ABDOMEN: Soft, nontender. Normoactive bowel sounds all 4 quadrants. No guarding or rebound. : No CVA tenderness EXTREMITIES: Normal range of motion, no clubbing or edema. Neurovascularly intact NEUROLOGICAL: Alert and oriented x4.Normal gait and speech. SKIN: Warm, dry, no laceration, no petechiae, no rashes or lesions. Course Orders Ordered: ED Orders 05/05/21 14:13 XR chest 1V Stat 05/05/21 14:16 EKG-12 Lead Stat 05/05/21 14:18 Complete Blood Count AUTO DIFF Stat Comprehensive Metabolic Panel Stat Lipase Stat Troponin & CK Cardiac Panel Stat 05/05/21 15:06 XR abdomen min 2V Stat 05/05/21 16:15 Troponin I Stat Discontinued Medications Mineral Oil (Mineral Oil 1 Each Enema) 1 each [place] NOW ONE Stop: 05/05/21 15:08 Last Admin: 05/05/21 15:22 Dose: 1 each Documented by: SANGEETA Vital Signs Vital signs: Vital Signs - 8 hr 05/05/21 14:10 05/05/21 14:50 05/05/21 14:52 Temperature 97.4 F L Pulse Rate 75 83 68 Respiratory Rate 15 Blood Pressure 188/90 H 167/77 H Pulse Oximetry 100 98 05/05/21 15:00 05/05/21 15:21 05/05/21 15:30 Temperature Pulse Rate 63 70 75 Respiratory Rate 20 30 H 13 Blood Pressure 161/74 H 184/75 H 157/72 H Pulse Oximetry 99 99 100 05/05/21 16:26 05/05/21 16:27 05/05/21 16:30 Temperature Pulse Rate 79 60 63 Respiratory Rate 31 H 24 24 Blood Pressure 160/113 H Pulse Oximetry 100 100 100 05/05/21 16:31 05/05/21 17:00 05/05/21 17:01 Temperature Pulse Rate 60 65 63 Respiratory Rate 22 17 16 Blood Pressure 164/72 H 149/68 H Pulse Oximetry 100 97 97 MDM - Chest Pain Lab Data Result diagrams: 05/05/21 14:18 05/05/21 14:18 Labs: Lab Results 05/05/21 05/05/21 05/05/21 Range/Units 14:18 14:18 16:15 WBC 5.9 (4.5-11.0) X10^3/uL RBC 3.97 L (4.0-5.2) X10^6/uL Hgb 10.4 L (12.0-16.0) g/dL Hct 33.0 L (36-46) % MCV 83.1 (80-100) fL MCH 26.2 (26-34) PG MCHC 31.5 (30-36) % RDW 15.9 H (11.6-14.8) % Plt Count 76 L (150-400) X10^3/uL Neut % (Auto) 82.3 H (50-75) % Lymph % (Auto) 8.0 L (25-40) % [place] % (Auto) 6.4 (3-14) % Eos % (Auto) 2.3 (2-4) % Baso % (Auto) 1.0 (0-2) % Neut # (Auto) 4900 (2800-6670) /uL Lymph # (Auto) 500 L (6639-8707) /uL [place] # (Auto) 400 (0-900) /uL Eos # (Auto) 100 (0-450) /uL Baso # (Auto) 100 (0-100) /uL Sodium 138 (137-145) mmol/L Potassium 4.1 (3.4-5.1) mmol/L Chloride 111 H (98-107) mmol/L Carbon Dioxide 21 L (22-32) mmol/L BUN 14 (7-17) mg/dL Creatinine 0.71 (0.52-1.04) mg/dL Estimated GFR > 60.0 (>60) mL/min BUN/Creatinine Ratio 19.7 (6-22) Glucose 100 (80-110) mg/dL Calcium 8.3 L (8.4-10.2) mg/dL Total Bilirubin 0.8 (0.2-1.3) mg/dL AST 56 H (14-36) IU/L ALT 31 (<35) IU/L Alkaline Phosphatase 193 H (38-126) U/L Total Creatine Kinase 55 (30-135) U/L CK-MB (CK-2) TNP CK-MB (CK-2) Rel Index TNP Troponin I < 0.012 < 0.012 (0.01-0.034) ng/mL Total Protein 6.3 (6.3-8.2) g/dL Albumin 3.3 L (3.5-5.0) g/dL Globulin 3.0 (1.7-4.1) g/dL Albumin/Globulin Ratio 1.1 (1.0-2.8) Lipase 252 (23-300) U/L Imaging Data Chest x-ray: Radiologist's Impression: PROCEDURE:? XR CHEST 1V ? INDICATIONS:? chest pain ? TECHNIQUE:? One view of the chest was acquired.? ? COMPARISON:? [facility], CR, XR CHEST 1V, 02/15/2021, 13:00. ? FINDINGS:? ? Surgical changes and devices:? None.? ? Lungs and pleura:? Lungs are clear.? No pleural effusions or pneumothorax.? ? Mediastinum:? Mediastinal contours appear normal.? Heart size is minimally prominent. ? Bones and chest wall:? No suspicious bony lesions.? Overlying soft tissues appear unremarkable.? ? IMPRESSION:? No acute pulmonary process. ? ? Dictated by: Gail Dunn M.D. on 05/05/2021 at 15:18 ? ? Abdominal x-ray: Radiologist's Impression: PROCEDURE:? XR ABDOMEN MIN 2V ? INDICATIONS:? rectal pain ? TECHNIQUE:? 2 views of the abdomen were acquired.? ? COMPARISON:? None. ? FINDINGS:? Surgical changes and devices:? None.? ? Bowel:? No pneumoperitoneum.? The bowel gas pattern is normal.? ? Soft tissues:? No masses; visualized solid organ contours appear normal in size.? No suspicious abdominal calcifications.? ? Bones:? No suspicious bony abnormalities.? ? IMPRESSION:? Unremarkable exam. ? ? ECG Data Interpretation: Rhythm rate 72 low voltage p.r. interval 188 QRS [address] Previous EKG showed atrial fibrillation. She does have T-wave inversion noted in lead 3 also seen previously. MDM Narrative Medical decision making narrative: Patient has rectal pain in history consistent with constipation. She was given an enema which did seem to help she actually had bowel movement afterwards and overall feels significantly better. She was only having chest pain when straining. 2- troponins no changes on EKG. At this time abdomen is soft symptoms completely improved. Discussed bowel regimen with her and high fiber diet. Discharge Plan Departure Patient Disposition: Home Clinical Impression: Constipation Qualifiers: Constipation type: unspecified constipation type Qualified Code(s): K59.00 - Constipation, unspecified Instructions: DI for Constipation Activity Restrictions/Additional Instructions: *You have been diagnosed with constipation *What to do: Increase water intake. Increase fiber intake. *Continue to take medications as directed Dulcolax 100 mg twice a day if needed for constipation MiraLax once daily if needed for constipation *Follow up with your primary care provider in 2-3 days *Return to ER if you should have increasing abdominal pain nausea vomiting[or] any new, worsening or concerning symptoms Prescriptions: No Action isosorbide mononitrate 30 MG tablet extended release 24 hr 30 mg PO Q DAY Qty: 0 RF: 0 enalapril maleate 20 MG tablet 20 mg PO BID Qty: 0 RF: 0 metoprolol tartrate 50 MG tablet 50 mg PO BID Qty: 0 RF: 0 aspirin 81 MG tablet,chewable 81 mg PO QDAY Qty: 0 RF: 0 levothyroxine [Synthroid] 75 MCG tablet 0.075 mg PO QDAY Qty: 0 RF: 0 amlodipine 5 mg tablet 5 mg PO DAILY RF: 0 atorvastatin 10 mg tablet 10 mg PO DAILY RF: 0 metformin 850 mg tablet 850 mg PO DAILY RF: 0 glipizide 2.5 mg tablet extended release 24hr 2.5 mg PO DAILY RF: 0 furosemide 20 mg tablet 20 mg PO BID RF: 0 metoprolol succinate 25 mg tablet extended release 24 hr 25 mg PO DAILY RF: 0 lisinopril 40 mg tablet 40 mg PO DAILY RF: 0 levofloxacin 750 mg tablet 750 mg PO DAILY Qty: 1 RF: 0 Referrals: Stacey Zhang MD [Primary Care Provider] -
[2021-05-05] MEDS: MINERAL OIL 1 EACH ENEMA PR (15:22)
[2021-05-05] MEDS: LIDOCAINE JELLY 2% 5 ML 5 APPLIC TOP (15:22)
[2021-05-05 17:12] LABS: Troponin I < 0.012 ng/mL (0.01-0.034)
== END 2021-05-05 17:31 | disposition home or self-care (01) ==
PROVIDERS: Emergency Provider Emergency Medicine; Family Provider Physician Assistant; PCP Family Medicine
DX: K59.00 Constipation, unspecified (principal); R07.9 Chest pain, unspecified; K62.89 Other specified diseases of anus and rectum
CPT/HCPCS: 36415; 71045; 74019; 80053; 82550; 83690; 84484; 85025; 93005; 99284

== ENCOUNTER 2022-01-29 11:16 | Emergency (ER) | payer MEDICARE, MEDICAID, SELFPAY ==
[2020-03-16 12:45] VITALS: BMI 32.1
[2022-01-29 11:35] VITALS: BP 179/79; PULSE 70; RESP 16; TEMP 36.7; O2SAT 99; BMI 28.3
[2022-01-29 12:06] LABS: Hematocrit 33.8 % (36-46); Hemoglobin 11.1 g/dL (12.0-16.0); Mean Corpuscular Hemoglobin 31.3 PG (26-34); Mean Corpuscular Volume 94.8 fL (80-100); Platelet Count 98 X10^3/uL (150-400); Red Blood Cell Count 3.56 X10^6/uL (4.0-5.2); Red Cell Distribution Width 15.4 % (11.6-14.8); White Blood Cell Count 13.2 X10^3/uL (4.5-11.0)
[2022-01-29 12:11] LABS: INR 1.3 (0.9-1.3)
[2022-01-29 12:12] LABS: Bacteria Urine None Seen; Culture Indicated Urine Cult Not Indicated; RBC Urine None Seen (0-5/HPF); Urine Comments Microscopic Normal; WBC Urine None Seen (0-5/HPF)
[2022-01-29 12:14] LABS: Add Manual Diff / Slide Review YES
[2022-01-29 12:17] LABS: Alanine Aminotransferase 41 IU/L (<35); Albumin 3.2 g/dL (3.5-5.0); Albumin Globulin Ratio 0.9 (1.0-2.8); Alkaline Phosphatase 427 U/L (38-126); Aspartate Aminotransferase 68 IU/L (14-36); BUN Creatinine Ratio 12.2 (6-22); Bilirubin Total 2.3 mg/dL (0.2-1.3); Blood Urea Nitrogen 12 mg/dL (7-17); Carbon Dioxide 25 mmol/L (22-32); Chloride 112 mmol/L (98-107); Estimated Glomerular Filt Rate > 60 mL/min (>60); Globulin 3.5 g/dL (1.7-4.1); Glucose 149 mg/dL (80-110); HEMOLYSIS 73 (0-50); Lipase 137 U/L (23-300); Potassium 4.3 mmol/L (3.4-5.1); Sodium 139 mmol/L (137-145); Total Protein 6.7 g/dL (6.3-8.2)
[2022-01-29 12:33] LABS: Neutrophils Absolute Manual 11748 /uL (3000-5900); Total Cells Counted 100
[2022-01-29 12:34] LABS: Anisocytosis 1+; Platelet Estimate Decreased on smear
--- NOTE | 2022-01-29 13:48 | ED_ITS ---
HPI - Abdominal Pain General Chief Complaint: Abdominal Pain Stated Complaint: abd pain- has cancer in liver Time Seen by Provider: 01/29/22 13:27 Mode of arrival: Family Vehicle History of Present Illness HPI narrative: Patient is a 66-year-old female history of hepatocellular carcinoma, hepatitis- C, cardiac disease followed by [facility] presenting today with increased abdominal pain. She feels nauseous at times but no vomiting she denies any chest pain but her pain is in her epigastric area right upper quadrant and right flank. She denies any bloating. She is getting some therapy but they are unsure what it is. She denies any fever chills chest pain or shortness of breath. Related Data Home Medications Medication Instructions Recorded Confirmed aspirin 81 mg chewable tablet 81 mg PO QDAY ##0 07/18/12 01/29/22 isosorbide mononitrate 30 mg 30 mg PO Q DAY ##0 07/18/12 01/29/22 tablet,extended release 24 hr furosemide 20 mg tablet 20 mg PO DAILY 03/16/20 01/29/22 metoprolol succinate 25 mg 50 mg PO DAILY 03/16/20 01/29/22 tablet,extended release 24 hr levothyroxine 75 mcg tablet 50 mcg PO DAILY 01/29/22 01/29/22 (Euthyrox) losartan 100 mg tablet 1 tab PO DAILY 01/29/22 01/29/22 pantoprazole 40 mg tablet,delayed 1 tab PO BID 01/29/22 01/29/22 release potassium chloride 10 mEq 10 tab PO BID 01/29/22 01/29/22 tablet,extended release Previous Rx's Medication Instructions Recorded ciprofloxacin HCl 500 mg tablet 500 mg PO BID #14 tabs 01/29/22 (Cipro) hydrocodone 5 mg-acetaminophen 325 1 tab PO Q6H PRN pain #10 tabs 01/29/22 mg tablet metronidazole 500 mg tablet 500 mg PO Q8H 7 days #21 tabs 01/29/22 ondansetron 4 mg disintegrating 4 mg PO Q8H PRN nausea and 01/29/22 tablet vomiting #10 tabs Allergies Allergy/AdvReac Type Severity Reaction Status Date / Time iodine Allergy Severe Hives Verified 01/29/22 11:38 Penicillins [PENICILLINS] Allergy Severe HIVES, SOB Verified 05/05/21 14:10 hydrocodone [HYDROCODONE] AdvReac Mild ITCHING Verified 05/05/21 14:10 Review of Systems Review of Systems Narrative: GENERAL: Denies chills, fatigue, malaise, fever, sweats, travel HEENT: Denies sinus pain, ear pain, sore throat, difficulty swallowing, neck pain RESPIRATORY: Denies dyspnea, cough, wheezing, hemoptysis, sputum. CARDIOVASCULAR: Denies chest pain, palpitations, orthopnea, edema GASTROINTESTINAL: See HPI : Denies dysuria, frequency, incontinence, hematuria, urinary retention, flank pain. MUSCULOSKELETAL: Denies weakness, joint pain, or bony pain SKIN: No rash, no erythema, no pruritus NEUROLOGIC: Denies weakness, dizziness, headache, numbness, change in speech, confusion PSYCHIATRIC: No concerning psychosocial issues. 12 point review of systems is negative except for those stated above and HPI Patient History Medical History CAD (coronary artery disease) Hepatitis C, chronic Hypertension Liver cancer Type 2 diabetes mellitus Family History Mother Myocardial infarction Father Myocardial infarction Sister Pneumonia due to COVID-19 virus Social History household members: family Smoking Status: Never smoker Smoking Status: Never smoker alcohol intake frequency: holidays/special occasions only Substance Use Type: does not use Exam Initial Vital Signs Initial Vital Signs: Vital Signs Temperature 98.0 F 01/29/22 11:35 Pulse Rate 70 01/29/22 11:35 Respiratory Rate 16 01/29/22 11:35 Blood Pressure 179/79 H 01/29/22 11:35 Pulse Oximetry 99 01/29/22 11:35 Oxygen Delivery Method 01/29/22 11:35 GENERAL: Alert 66-year-old female and in no acute distress. HEENT: Head atraumatic,EOMI, pupils reactive, face symmetric, moist mucous membranes CARDIOVASCULAR: Regular rate and rhythm without murmurs, rubs or gallops. RESPIRATORY: Breath sounds equal bilaterally, no wheezes rales or rhonchi. ABDOMEN: Soft, tender right upper quadrant epigastric area no fluid wave no distention EXTREMITIES: Normal range of motion, no clubbing or edema. Neurovascularly intact NEUROLOGICAL: Alert and oriented x4.Normal gait and speech. Cranial nerves II through XII grossly intact. SKIN: Warm, dry, no laceration, no petechiae, no rashes or lesions. Course Orders Ordered: ED Orders 01/29/22 11:52 Complete Blood Count AUTO DIFF Stat Comprehensive Metabolic Panel Stat Lipase Stat Prothrombin Time INR Stat Troponin & CK Cardiac Panel Stat Urine Microscopic Stat 01/29/22 11:58 EKG-12 Lead Stat 01/29/22 14:27 CT chest abd pel w con Stat Discontinued Medications Diphenhydramine HCl (Diphenhydramine 50 Mg/Ml Vial) 25 mg IV NOW ONE Stop: 01/29/22 14:39 Last Admin: 01/29/22 14:54 Dose: 25 mg Documented By: PIPER Methylprednisolone (Methylprednisolone 125 Mg/2 Ml Vial) 125 mg IV NOW ONE Stop: 01/29/22 14:39 Last Admin: 01/29/22 14:53 Dose: 125 mg Documented By: PIPER Morphine Sulfate (Morphine 4 Mg/Ml Inj) 4 mg IV NOW ONE Stop: 01/29/22 14:28 Last Admin: 01/29/22 14:54 Dose: 4 mg Documented By: MLBridgett Ondansetron HCl (Ondansetron 4 Mg/2 Ml Inj) 4 mg IV NOW ONE Stop: 01/29/22 14:28 Last Admin: 01/29/22 14:53 Dose: 4 mg Documented By: PIPER Vital Signs Vital signs: Vital Signs - 8 hr 01/29/22 11:35 01/29/22 15:29 01/29/22 15:30 Temperature 98.0 F Pulse Rate 70 77 Respiratory Rate 16 Blood Pressure 179/79 H 179/81 H Pulse Oximetry 99 93 Oxygen Delivery Method Room Air 01/29/22 15:30 01/29/22 16:00 01/29/22 16:00 Temperature Pulse Rate 78 75 Respiratory Rate 16 Blood Pressure 174/76 H Pulse Oximetry 97 98 Oxygen Delivery Method MDM - Abdominal Pain Lab Data Result diagrams: 01/29/22 11:52 01/29/22 11:52 Labs: Lab Results 01/29/22 01/29/22 01/29/22 Range/Units 11:52 11:52 11:52 WBC 13.2 H (4.5-11.0) X10^3/uL RBC 3.56 L (4.0-5.2) X10^6/uL Hgb 11.1 L (12.0-16.0) g/dL Hct 33.8 L (36-46) % MCV 94.8 (80-100) fL MCH 31.3 (26-34) PG MCHC 33.0 (30-36) % RDW 15.4 H (11.6-14.8) % Plt Count 98 L (150-400) X10^3/uL Neut % (Auto) Not Reportable Lymph % (Auto) Not Reportable [place] % (Auto) Not Reportable Eos % (Auto) Not Reportable Baso % (Auto) Not Reportable Lymph # (Auto) Not Reportable [place] # (Auto) Not Reportable Baso # (Auto) Not Reportable Total Counted 100 Seg Neutrophils % 87.0 H (38-70) % Band Neutrophils % 2.0 L (3-7) % Lymphocytes % (Manual) 6.0 L (25-45) % Monocytes % (Manual) 4.0 (2-11) % Eosinophils % (Manual) 1.0 L (2-4) % Neutrophils # (Manual) 01380 H (2032-4495) /uL Platelet Estimate Decreased on smear RBC Morphology See below Anisocytosis 1+ H PT 15.0 H (10.1-12.7) SECONDS INR 1.3 (0.9-1.3) Sodium 139 (137-145) mmol/L Potassium 4.3 (3.4-5.1) mmol/L Chloride 112 H (98-107) mmol/L Carbon Dioxide 25 (22-32) mmol/L BUN 12 (7-17) mg/dL Creatinine 0.98 (0.52-1.04) mg/dL Estimated GFR > 60 (>60) mL/min BUN/Creatinine Ratio 12.2 (6-22) Glucose 149 H (80-110) mg/dL Calcium 8.0 L (8.4-10.2) mg/dL Total Bilirubin 2.3 H (0.2-1.3) mg/dL AST 68 H (14-36) IU/L ALT 41 H (<35) IU/L Alkaline Phosphatase 427 H (38-126) U/L Total Creatine Kinase (30-135) U/L CK-MB (CK-2) CK-MB (CK-2) Rel Index Troponin I (0.01-0.034) ng/mL Total Protein 6.7 (6.3-8.2) g/dL Albumin 3.2 L (3.5-5.0) g/dL Globulin 3.5 (1.7-4.1) g/dL Albumin/Globulin Ratio 0.9 L (1.0-2.8) Lipase 137 (23-300) U/L Urine RBC (0-5/HPF) Urine WBC (0-5/HPF) Urine Bacteria (None) Ur Culture Indicated? Micro UA Comment 01/29/22 01/29/22 Range/Units 11:52 11:52 WBC (4.5-11.0) X10^3/uL RBC (4.0-5.2) X10^6/uL Hgb (12.0-16.0) g/dL Hct (36-46) % MCV (80-100) fL MCH (26-34) PG MCHC (30-36) % RDW (11.6-14.8) % Plt Count (150-400) X10^3/uL Neut % (Auto) Lymph % (Auto) [place] % (Auto) Eos % (Auto) Baso % (Auto) Lymph # (Auto) [place] # (Auto) Baso # (Auto) Total Counted Seg Neutrophils % (38-70) % Band Neutrophils % (3-7) % Lymphocytes % (Manual) (25-45) % Monocytes % (Manual) (2-11) % Eosinophils % (Manual) (2-4) % Neutrophils # (Manual) (0999-6826) /uL Platelet Estimate RBC Morphology Anisocytosis PT (10.1-12.7) SECONDS INR (0.9-1.3) Sodium (137-145) mmol/L Potassium (3.4-5.1) mmol/L Chloride (98-107) mmol/L Carbon Dioxide (22-32) mmol/L BUN (7-17) mg/dL Creatinine (0.52-1.04) mg/dL Estimated GFR (>60) mL/min BUN/Creatinine Ratio (6-22) Glucose (80-110) mg/dL Calcium (8.4-10.2) mg/dL Total Bilirubin (0.2-1.3) mg/dL AST (14-36) IU/L ALT (<35) IU/L Alkaline Phosphatase (38-126) U/L Total Creatine Kinase 88 (30-135) U/L CK-MB (CK-2) TNP CK-MB (CK-2) Rel Index TNP Troponin I < 0.012 (0.01-0.034) ng/mL Total Protein (6.3-8.2) g/dL Albumin (3.5-5.0) g/dL Globulin (1.7-4.1) g/dL Albumin/Globulin Ratio (1.0-2.8) Lipase (23-300) U/L Urine RBC None seen (0-5/HPF) Urine WBC None seen (0-5/HPF) Urine Bacteria None seen (None) Ur Culture Indicated? Cult not indicated Micro UA Comment Microscopic normal Point of care testing: Urine Dip Bedside Urine Glucose Negative Bedside Urine Bilirubin - Negative Bedside Urine Ketone - Negative Urine Specific [place] 1.015 Bedside Urine Occult Blood +/- Bedside Urine pH 6.0 Bedside Urine Protein +/- 15 Bedside Urine Urobilinogen - Negative Bedside Urine Nitrite - Negative Bedside Urine Leukocytes - Negative Esterase Imaging Data CT scan - abdomen/pelvis: Radiologist's Impression: nt: Sandra Kirby MR#: [id number] : 1955 Acct:[id number] Age/Sex: 66 / F Date of Service: 01/29/22 Loc: Accession Number: [id number] ?? Procedure: CT chest abd pel w con Ordering Provider: Sushila Dove D.O. PROCEDURE:? CT CHEST ABD PEL W CON ? INDICATIONS:? Hepatocellular carcinoma with increased abdominal pain ? TECHNIQUE:? After the administration of intravenous contrast, 5 mm thick sections acquired from the lung apices to the symphysis.? 5 mm coronal and sagittal reformats were performed, with additional 7 mm MIP reformats through the lungs.? For radiation dose reduction, the following was used:? automated exposure control, adjustment of mA and/or kV according to patient size.? ? COMPARISON:? [facility], CT, CT CHEST ABD PEL W CON, 02/15/2021, 12:44. ? FINDINGS:? Image quality:? Excellent.? ? CHEST:? Lungs and pleura:? No acute airspace opacities.? The lobulated 1.0 cm pulmonary nodule at the right lung base visualized on the study dated February 15, 2021 is not visualized on the current study.? No new pulmonary nodules.? No pleural effusions or pneumothorax.? Central and peripheral airways appear patent and normal in caliber.? ? Mediastinum:? Heart size is normal.? No pericardial effusion.? No mediastinal or hilar adenopathy by size criteria.? Thoracic aorta and central pulmonary arteries are normal in size. Scattered atheromatous calcifications are present within the aortic arch.? Esophagus is normal in caliber.? No hiatal hernia.? ? Chest wall:? No axillary or supraclavicular adenopathy by size criteria.? Thyroid gland is unremarkable.? ? ? ABDOMEN:? Solid organs:? The liver has a nodular surface consistent with cirrhotic transformation.? The centrally hypodense peripherally enhancing lobulated mass within the right hepatic lobe has decreased in size when compared with the study dated February 15, 2021. A hypodense nodule along the anterior aspect of the left hepatic lobe is decreased in size measuring 1.1 cm on the current study and 1.5 cm on the study dated February 15, 2021. Trace perihepatic low-density free fluid is present, also decreased in extent from the prior study.? 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 Gallbladder is not visualized and may be surgically absent.? Biliary system is non dilated.? Pancreas enhances normally.? Spleen is normal in size and enhancement.? No adrenal nodules.? Kidneys demonstrate normal size and en hancement, without hydronephrosis.? ? Peritoneum and bowel:? The stomach is decompressed.? The small bowel demonstrates normal caliber and wall thickness.? There is diffuse wall thickening of the cecum and the ascending colon.? Some pericolonic fat stranding is present as well.? The transverse, descending, and sigmoid colon demonstrate normal caliber and wall thickness.? There is trace low-density free pelvic fluid.? The appendix is not definitely visualized. ? Nodes and vessels:? No retroperitoneal or mesenteric adenopathy by size criteria.? Aorta and inferior vena cava are normal in size.? There are scattered atheromatous calcifications throughout the aorta and iliac arteries bilaterally.? There is a large splenorenal shunt. ? Miscellaneous:? No ventral hernias.? ? ? PELVIS:? Genitourinary:? Bladder wall thickness is normal.? ? Miscellaneous:? No inguinal hernias or adenopathy.? ? Bones:? No suspicious bony lesions.? No vertebral body compression fractures.? ? IMPRESSION:? ? 1. Decreased size of the hypodense right hepatic mass when compared with the study dated February 15, 2021 suggesting response to treatment. ? 2. Trace right low-density perihepatic free fluid, decreased from the prior study. ? 3. Circumferential wall thickening of the cecum and the ascending colon with pericolonic fat stranding.? These findings can be associated with acute colitis.? However, similar findings were visualized on the study dated February 15, 2021. Differential considerations include bowel hydrops secondary to underlying liver disease.? ? 4. 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 ? Dictated by: Lauryn Aldridge M.D. on 01/29/2022 at 15:34 ? ? Approved by: Lauryn Aldridge M.D. on 01/29/2022 at 15:49 ? MDM Narrative Medical decision making narrative: Patient does have a history of cancer had tender right upper quadrant and right flank area. CT shows actually improvement in masses. It is positive for colitis. Patient does have some mild leukocytosis but is afebrile. Will treat her with antibiotics. She is supposed to follow-up with [facility] in a couple of weeks. Pain is significantly better after medication here in the ED. Discharge Plan Departure Patient Disposition: Home Clinical Impression: Colitis Instructions: DI for Colitis Activity Restrictions/Additional Instructions: *You have been diagnosed with Colitis *What to do: At this time it appears that you have him inflammation infection in her colon. Her cancer seems to be improving based on our scan in 2020. Ple ase follow-up with Oncology *Continue to take medications as directed--> SENT TO ANU IN [place] Cipro 500 mg twice a day for 7 day Flagyl 500 mg 3 times a day for 7 days Zofran 4 mg every 8 hours if needed for nausea or vomiting [place] 1 tablet every 6 hours if needed for severe pain *Follow up with your primary care provider in 2-3 days or call [phone] *Return to ER if you should have increasing abdominal pain nausea vomiting fever or [or] any new, worsening or concerning symptoms CONTROLLED SUBSTANCE DISCHARGE (Narcotoic/benzodiazepine/Flexeril/Phenergan) 1. You have been prescribed narcotic medications, it does have acetaminophen/Tylenol/paracetamol in it, DO NOT TAKE MORE THAN 4,00mg in 24 hours of Tylenol. TRAMADOL DOES NOT CONTAIN TYLENOL 2. Please understand that we cannot provide further refills of narcotics, benzodiazepines or controlled substances through the ED and her pain management will need to be through your provider. 3. While on these medications you cannot drive or operate heavy machinery. 4. You cannot sign legal documents or perform any duties such as this. 5. As long as you're taking opiate pain medications he should also be taking a stool softener such as Colace, Dulcolax, MiraLAX or prune juice, to help avoid constipation. Prescriptions: New hydrocodone-acetaminophen 5-325 mg tablet 1 tab PO Q6H PRN (Reason: pain) Qty: 10 0RF metronidazole 500 mg tablet 500 mg PO Q8H 7 Days Qty: 21 0RF ciprofloxacin HCl [Cipro] 500 mg tablet 500 mg PO BID Qty: 14 0RF ondansetron 4 mg tablet,disintegrating 4 mg PO Q8H PRN (Reason: nausea and vomiting) Qty: 10 0RF No Action isosorbide mononitrate 30 MG tablet extended release 24 hr 30 mg PO Q DAY Qty: 0 aspirin 81 MG tablet,chewable 81 mg PO QDAY Qty: 0 furosemide 20 mg tablet 20 mg PO DAILY metoprolol succinate 25 mg tablet extended release 24 hr 50 mg PO DAILY potassium chloride 10 mEq tablet extended release 10 tab PO BID Label Comments: TAKE 1 TABLET BY MOUTH TWICE DAILY levothyroxine [Euthyrox] 75 mcg tablet 50 mcg PO DAILY Label Comments: TAKE 1 TABLET BY MOUTH ONCE DAILY ON AN EMPTY STOMACH pantoprazole 40 mg tablet,delayed release (DR/EC) 1 tab PO BID Label Comments: TAKE 1 TABLET BY MOUTH TWICE DAILY BEFORE MEAL(S) losartan 100 mg tablet 1 tab PO DAILY Label Comments: TAKE 1 TABLET BY MOUTH ONCE DAILY Referrals: Stacey Zhang MD [Primary Care Provider] - Visit Report Forms: Patient Portal/API
--- NOTE | 2022-01-29 14:27 | DI.CT.S_ITS ---
PROCEDURE: CT CHEST ABD PEL W CON INDICATIONS: Hepatocellular carcinoma with increased abdominal pain TECHNIQUE: After the administration of intravenous contrast, 5 mm thick sections acquired from the lung apices to the symphysis. 5 mm coronal and sagittal reformats were performed, with additional 7 mm MIP reformats through the lungs. For radiation dose reduction, the following was used: automated exposure control, adjustment of mA and/or kV according to patient size. COMPARISON: [facility], CT, CT CHEST ABD PEL W CON, 02/15/2021, 12:44. FINDINGS: Image quality: Excellent. CHEST: Lungs and pleura: No acute airspace opacities. The lobulated 1.0 cm pulmonary nodule at the right lung base visualized on the study dated February 15, 2021 is not visualized on the current study. No new pulmonary nodules. No pleural effusions or pneumothorax. Central and peripheral airways appear patent and normal in caliber. Mediastinum: Heart size is normal. No pericardial effusion. No mediastinal or hilar adenopathy by size criteria. Thoracic aorta and central pulmonary arteries are normal in size. Scattered atheromatous calcifications are present within the aortic arch. Esophagus is normal in caliber. No hiatal hernia. Chest wall: No axillary or supraclavicular adenopathy by size criteria. Thyroid gland is unremarkable. ABDOMEN: Solid organs: The liver has a nodular surface consistent with cirrhotic transformation. The centrally hypodense peripherally enhancing lobulated mass within the right hepatic lobe has decreased in size when compared with the study dated February 15, 2021. A hypodense nodule along the anterior aspect of the left hepatic lobe is decreased in size measuring 1.1 cm on the current study and 1.5 cm on the study dated February 15, 2021. Trace perihepatic low-density free fluid is present, also decreased in extent from the prior study. 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 Gallbladder is not visualized and may be surgically absent. Biliary system is non dilated. Pancreas enhances normally. Spleen is normal in size and enhancement. No adrenal nodules. Kidneys demonstrate normal size and enhancement, without hydronephrosis. Peritoneum and bowel: The stomach is decompressed. The small bowel demonstrates normal caliber and wall thickness. There is diffuse wall thickening of the cecum and the ascending colon. Some pericolonic fat stranding is present as well. The transverse, descending, and sigmoid colon demonstrate normal caliber and wall thickness. There is trace low-density free pelvic fluid. The appendix is not definitely visualized. Nodes and vessels: No retroperitoneal or mesenteric adenopathy by size criteria. Aorta and inferior vena cava are normal in size. There are scattered atheromatous calcifications throughout the aorta and iliac arteries bilaterally. There is a large splenorenal shunt. Miscellaneous: No ventral hernias. PELVIS: Genitourinary: Bladder wall thickness is normal. Miscellaneous: No inguinal hernias or adenopathy. Bones: No suspicious bony lesions. No vertebral body compression fractures. IMPRESSION: 1. Decreased size of the hypodense right hepatic mass when compared with the study dated February 15, 2021 suggesting response to treatment. 2. Trace right low-density perihepatic free fluid, decreased from the prior study. 3. Circumferential wall thickening of the cecum and the ascending colon with pericolonic fat stranding. These findings can be associated with acute colitis. However, similar findings were visualized on the study dated February 15, 2021. Differential considerations include bowel hydrops secondary to underlying liver disease. 4. 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 Dictated by: Lauryn Aldridge M.D. on 01/29/2022 at 15:34 Approved by: Lauryn Aldridge M.D. on 01/29/2022 at 15:49
[2022-01-29] MEDS: ONDANSETRON 4 MG/2 ML INJ IV (14:53)
[2022-01-29] MEDS: methylPREDNISolone 125 MG/2 ML VIAL IV (14:53)
[2022-01-29] MEDS: diphenhydrAMINE 50 MG/ML VIAL 25 MG IV (14:54)
[2022-01-29] MEDS: MORPHINE 4 MG/ML INJ IV (14:54)
[2022-01-29 15:17] LABS: Creatine Kinase 88 U/L (30-135)
[2022-01-29 15:29] VITALS: PULSE 77; O2SAT 93
[2022-01-29 15:29] LABS: Troponin I < 0.012 ng/mL (0.01-0.034)
[2022-01-29 15:30] VITALS: BP 179/81; PULSE 78; O2SAT 97
[2022-01-29 16:00] VITALS: BP 174/76; PULSE 75; RESP 16; O2SAT 98
== END 2022-01-29 16:41 | disposition home or self-care (01) ==
PROVIDERS: Emergency Provider Emergency Medicine; Family Provider Physician Assistant; PCP Family Medicine
DX: K52.9 Noninfective gastroenteritis and colitis, unspecified (principal); R11.0 Nausea
CPT/HCPCS: 36415; 71260; 74177; 80053; 81003; 81015; 82550; 83690; 84484; 85007; 85025; 85610; 93005; 96374; 96375; 99284; J1200; J2270; J2405; J2930